=== PATIENT | female | born 1935 | race Caucasian/White ===

== ENCOUNTER 2018-04-01 09:16 | Inpatient (IN) | payer OTHER ==
[2018-04-01 09:30] VITALS: BMI 21.4
[2018-04-01] MEDS ORDERED: ALBUTEROL SO4 2.5/IPRATROPIUM 0.5 INH SOL 3 ML VIAL.NEB. NEB ONE ×3 (09:31→10:44)
[2018-04-01] MEDS ORDERED: VANCOMYCIN 1 GM in D5W (PRE-DOCKED) 1,000 MG/250 ML IVPB ONE (09:44)
[2018-04-01] MEDS ORDERED: PIPERACILLIN/TAZOB 3.375 GM 3.375 GM in DEXTROSE 5%-WATER - 50 ML IVPB ONE (09:45)
[2018-04-01] MEDS ORDERED: SODIUM CHLORIDE 0.9% 1000 ML INFUS.BAG IV ONE ×2 (09:45→10:57)
[2018-04-01 10:15] LABS: BASO % 0.3 % (0-2.0); EOS % 1.3 % (0-4.5); HEMATOCRIT 25.4 % (32.4-45.2); HEMOGLOBIN 7.7 GM/dL (10.7-15.3); MCH 25.6 pg (25.7-33.7); MCHC 30.3 g/dl (32.0-36.0); MEAN CELL VOLUME 84.4 fl (80-96); MEAN PLT VOLUME 7.8 fl (7.5-11.1); MONO % 5.1 % (3.8-10.2); NEUT % 79.3 % (42.8-82.8); PLATELET COUNT 293 K/MM3 (134-434); RBC 3.01 M/mm3 (3.60-5.2); RDW 27.2 % (11.6-15.6); WHITE BLOOD COUNT 8.9 K/mm3 (4.0-10.0)
--- NOTE | 2018-04-01 10:21 | PDOC ---
Attending Attestation - Resident Resident Name: Lan Britt - ED Attending Attestation I have performed the following: I have examined & evaluated the patient, The case was reviewed & discussed with the resident, I agree w/resident's findings & plan, Exceptions are as noted - HPI HPI: 04/01/18 10:14 82 yo F with h/o COPD, in rehab / nursing facility here after arrest. pt called desai, and then found on floor by nursing facility. was found in asystole by ambulance, cpr initiated. aCLS, bicarb and epe x 4. ROSC was in PEA then sinus tachycardia. intubated on scene. received automated CPR. history by EMS as pt intubated on arrival. - Physicial Exam PE: 04/01/18 10:18 pt eyes closed. PERRL, small, head traumatic. lungs with course breath sound bilaterally intubated. sedated. heart rrr no mrg abd soft. ext cool, 2+dp pt . nuero intubated, no spont movement. but does have a gag. eccymosis to epigastrum / red area from cpr. - Medical Decision Making 04/01/18 10:21 82 yo F with h/o card arrest, copd, likely presesumed to be resp secondary to pna, vs. ple effusion, copd. differential includes cardiac arrest AL, hypotension and arrest from sepsis, uti, acidosis, aneia, renal failure. glucose was 300. intracranial bleed considered. will obtain cxr ekg labs septic workup, ct head. . focused ED TTE performed, indication cardiac arrest. four views heart obtained. good contractility, small pericardial effusion noted. RV dilation noted . lungs bilat plueral effusions. right greater than left. air bronchograms at right base sliding seen bilaterally. otherwise a line predominant left, small b lines right. impression: small pericardial effusion with dilated RV , good contractility ( likley chronic, copd), bilat plueral effusion, right base infiltrate. bilat lower extremity dopplers, indication cardiac arrest, r/o pe bilat common femorals scaned plast bifurcation into deep and superficial femoral. full compression bilaterally no visualized clot. popliteals scanned past trifurcation bilaterally. full compression, no visualized clot. impression: no proximal dvt. us guided central line placed right ij. sterile technique used. ( dr puckett, myself). vessel confirmed with compression and color flow. were visualized in IJ prior to dilation vessel. confirmed right sided placement with flush and visualized bubble in RV. no ptx confirmed with lung sliding bilateraly post line. pt with ET tube in place, confirmed on exam, and xray. central line placed for severe shock, cardiac arrest. possible pressors. pt hypotension iimproving with iv fluids. crit care time spent rescusitating patient 60 min. d/w family and ICU performance bedside us. central line placement right IJ. given abx to cover hcap, sepsis. initial lactate 9, likley sepsis and secondary to decreased perfusion during arrest. ekg with TWI, trop pending. d/w icu grupo admit to iCU 04/01/18 10:50
--- NOTE | 2018-04-01 10:36 | PDOC ---
History of Present Illness - General Chief Complaint: Cardiac Arrest Stated Complaint: Cardiac Arrest History Source: Patient Exam Limitations: Clinical Condition - History of Present Illness Initial Comments: 04/01/18 10:26 Patient is an 82F with history of COPD, cervical injury with central cord syndrome here today after cardiac arrest. EMS reports that the patient hit her call button at her nursing facility. Patient was then found in cardiac arrest, compressions were started. EMS reports giving epi x4, bicarb, unknown exact downtime, rosc achieved after ~15 minutes after their arrival. Intubated in the field with good waveform on capnography. Past History - Past Medical History Allergies/Adverse Reactions: Allergies Allergy/AdvReac Type Severity Reaction Status Date / Time ciprofloxacin [From Cipro] Allergy Verified 04/01/18 09:30 Quinolones Allergy Verified 04/01/18 09:31 Sulfa (Sulfonamide Allergy Verified 04/01/18 09:31 Antibiotics) COPD: Yes CHF: Yes Dementia: Yes GI Disorders: Yes (gerd) HTN: Yes Hypercholesterolemia: Yes Psychiatric Problems: Yes (depressive ds, anxiety,) - Suicide/Smoking/Psychosocial Hx Smoking History: Never smoked Have you smoked in the past 12 months: No Information on smoking cessation initiated: No Hx Alcohol Use: No Drug/Substance Use Hx: No Review of Systems - Review of Systems Able to Perform ROS?: No (intubated) *Physical Exam - Vital Signs Last Vital Signs Temp Pulse Resp BP Pulse Ox 97.0 F L 108 H 16 108/72 100 04/01/18 09:16 04/01/18 09:20 04/01/18 09:20 04/01/18 09:16 04/01/18 09:20 - Physical Exam Comments: 04/01/18 10:37 GENERAL: Intubated, no c-collar HEAD: No signs of trauma, normocephalic, atraumatic EYES: PERRLA, EOMI, sclera anicteric, conjunctiva clear ENT: Intubated, moist mucosa NECK: +JVD LUNGS: Equal breath sounds, coarse, wet HEART: Regular rate and rhythm, normal S1 and S2, no murmurs, rubs or gallops, peripheral pulses normal and equal bilaterally. ABDOMEN: Soft, nontender, normoactive bowel sounds. No guarding, no rebound. No masses EXTREMITIES: Normal inspection, Normal range of motion, no edema. No clubbing or cyanosis. NEUROLOGICAL: Pupils 5mm and minimally reactive, gag reflex intact, no movement of extremities. No sedation on board. SKIN: Warm, Dry, normal turgor, no rashes or lesions noted. Moderate Sedation - Procedure Monitoring Vital Signs: Procedure Monitoring Vital Signs Temperature 97.0 F L 04/01/18 09:16 Pulse Rate 108 H 04/01/18 09:20 Respiratory Rate 16 04/01/18 09:20 Blood Pressure 108/72 04/01/18 09:16 O2 Sat by Pulse Oximetry (%) 100 04/01/18 09:20 Procedures - Central Line Central Line Lumen: triple Central Line Position: internal jugular (L) Anesthesia: 1% Lidocaine Amount of anesthesia (ccs): 2 Complications: none Post Central Line Insertion: sutured, good blood return, position confirmed w/ CXR Progress: 04/01/18 12:55 Confirmed via cxr and long/short US views. Dr Dinero primary, Dr Britt assisting, Dr Sky attending. ED Treatment Course - LABORATORY CBC & Chemistry Diagram: 04/01/18 09:46 04/01/18 09:46 - ADDITIONAL ORDERS Additional order review: Laboratory Results 04/01/18 09:19 POC Glucometer 192 04/01/18 04/01/18 09:46 09:19 RBC 3.01 L MCV 84.4 MCHC 30.3 L RDW 27.2 H MPV 7.8 Neutrophils % 79.3 Lymphocytes % 14.0 Monocytes % 5.1 Eosinophils % 1.3 Basophils % 0.3 POC Glucometer 192 - RADIOLOGY Radiology Studies Ordered: Category Date Time Status HEAD CT WITHOUT CONTRAST [CT] Stat CT Scan 04/01/18 10:16 Ordered - Medications Given in the ED: ED Medications Discontinued Medications Generic Name Dose Route Start Last Admin Trade Name Freq PRN Reason Stop Dose Admin Albuterol/Ipratropium 1 amp 04/01/18 09:44 04/01/18 09:50 Duoneb - NEB 04/01/18 09:45 1 amp ONCE ONE Administration Medical Decision Making - Critical Care Time Total Critical Care Time (minutes): 90 Critical Care Statement: The care of this patient involved high complexity decision making to prevent further life threatening deterioration of the patient 's condition and/or to evaluate & treat vital organ system(s) failure or risk of failure. - Medical Decision Making 04/01/18 10:39 Patient is 82F with history of copd and central cord syndrome here today with cardiac arrest. Suspect respiratory failure causing respiratory arrest. A - intubated, good waveform on capnography B - breath sounds equal and bilateral, coarse C - BP map of 60 D - Pupils 5mm minimally reactive, not moving extremities, no facial droop E - Fully exposed, no injuries or signs of infection process noted F - US shows good cardiac squeeze, small pericardial effusion, slightly enlarged RV. Pneumonia on R side, bilateral pleural effusiong G - Glucose 190 fingerstick Central line placed as per procedure note. Started on 2L of NS. Vanc/zosyn started empirically for likely CAP. Duonebs run through tube, oxygenating well. Septic workup initiated. BPs improving with fluids, not requiring pressors at this time. Cooling protocol with goal of 36C started. CXR shows opacification at the right base, appropriate central line/intubation placement. 04/01/18 11:00 Reassessed, last BP MAP 67. *DC/Admit/Observation/Transfer Diagnosis at time of Disposition: Cardiac arrest, Pneumonia - Discharge Dispostion Condition at time of disposition: Critical Decision to Admit order: Yes - Referrals - Patient Instructions - Post Discharge Activity
[2018-04-01 10:43] LABS: VENOUS PC02 61.4 mmHg (38-52)
[2018-04-01 10:45] LABS: VENOUS PH 7.1 (7.32-7.42)
[2018-04-01] MEDS ORDERED: PIPERACILLIN/TAZOB 3.375 GM 3.375 GM/50 ML BAG IVPB ONE (10:45)
[2018-04-01] MEDS ORDERED: VANCOMYCIN 1 GRAM (PRE-DOCKED) 1,000 MG/250 ML BAG IVPB ONE (10:45)
[2018-04-01 11:20] LABS: ALBUMIN 2.7 g/dl (3.4-5.0); ALK PHOS 103 U/L (45-117); ANION GAP 15 MMOL/L (8-16); BILIRUBIN,TOTAL 0.5 mg/dL (0.2-1); BLOOD UREA NITROGEN 26 mg/dL (7-18); CALCIUM 7.4 mg/dL (8.5-10.1); CHLORIDE 109 mmol/L (98-107); CO2 19 mmol/L (21-32); CREATININE 1.9 mg/dL (0.55-1.3); GLUCOSE,RANDOM 282 mg/dL (74-106); POTASSIUM 4.5 mmol/L (3.5-5.1); SGOT/AST 92 U/L (15-37); SGPT/ALT 53 U/L (13-61); SODIUM 142 mmol/L (136-145); TOT PROT 5.4 g/dl (6.4-8.2)
--- NOTE | 2018-04-01 11:48 | CONSULT ---
Consultation: REQUESTING PROVIDER: CONSULT REQUEST: We have been asked to medically evaluate this patient for ICU admission HISTORY OF PRESENT ILLNESS: Patient is not responsive. History provided by son at bedside, and SNF paperwork Patient is an 82 year old female with history of hypertension, COPD, reflex sympathetic dystrophy secondary to C6/C7 fracture s/p fusion, vascular dementia , anxiety, heart failure, presented to ICU after being found on floor, unresponsive in her SNF ([facility]). Uncertain how long patient was on the floor, however, per EMS, ROSC was obtained approx. 15 minutes after chest compressions were initiated. Patient was intubated in field by EMS. Right sided triple lumen internal jugular catheter placed in ED. REVIEW OF SYSTEMS: Unable to obtain. Patient is intubated, nonresponsive. PHYSICAL EXAMINATION Vital Signs - 24 hr 04/01/18 04/01/18 09:16 09:20 Temperature 97.0 F L Pulse Rate 122 H 108 H Respiratory 18 16 Rate Blood Pressure 108/72 O2 Sat by Pulse 100 100 Oximetry (%) GENERAL: Patient is intubated, nonresponsive HEENT: Normocephalic, atraumatic. Pupils equal, round, sluggishly reactive to light, sclera anicteric, conjunctiva clear. Supple without lymphadenopathy. EARS, NOSE, THROAT: Ears normal, nares patent, oropharynx clear without exudates. Moist mucous membranes. LUNGS: Mechanical breath sounds equal, clear to auscultation bilaterally. No wheezes, and no crackles. HEART: Irregular rate and rhythm. normal S1 and S2 without murmur, rub or gallop. ABDOMEN: Soft, not distended. Hypoactive bowel sounds x4 quadrants. UPPER EXTREMITIES: 1+ radial pulses bilaterally. No cyanosis. LOWER EXTREMITIES: 1+ dorsalis pedis pulses bilaterally. No peripheral edema bilateral lower extremities. SKIN: Warm, dry. Laboratory Results - last 24 hr 04/01/18 04/01/18 04/01/18 09:19 09:46 09:46 WBC 8.9 RBC 3.01 L Hgb 7.7 L Hct 25.4 L MCV 84.4 MCH 25.6 L MCHC 30.3 L RDW 27.2 H Plt Count 293 MPV 7.8 Absolute Neuts (auto) 7.0 Neutrophils % 79.3 Lymphocytes % 14.0 Monocytes % 5.1 Eosinophils % 1.3 Basophils % 0.3 Nucleated RBC % 0 VBG pH 7.10 L* POC VBG pCO2 61.4 H* POC VBG pO2 50.0 H Mixed VBG HCO3 18.2 L Sodium Potassium Chloride Carbon Dioxide Anion Gap BUN Creatinine Creat Clearance w eGFR POC Glucometer 192 Random Glucose Lactic Acid Calcium Total Bilirubin AST ALT Alkaline Phosphatase Creatine Kinase Troponin I Total Protein Albumin 04/01/18 04/01/18 04/01/18 09:46 09:46 09:46 WBC RBC Hgb Hct MCV MCH MCHC RDW Plt Count MPV Absolute Neuts (auto) Neutrophils % Lymphocytes % Monocytes % Eosinophils % Basophils % Nucleated RBC % VBG pH POC VBG pCO2 POC VBG pO2 Mixed VBG HCO3 Sodium 142 Potassium 4.5 Chloride 109 H Carbon Dioxide 19 L Anion Gap 15 BUN 26 H Creatinine 1.9 H Creat Clearance w eGFR 25.44 POC Glucometer Random Glucose 282 H Lactic Acid 9.3 H* Calcium 7.4 L Total Bilirubin 0.5 AST 92 H ALT 53 Alkaline Phosphatase 103 Creatine Kinase 59 Troponin I 0.02 Total Protein 5.4 L Albumin 2.7 L ASSESSMENT/PLAN: Patient is an 82 year old female with history of hypertension, COPD, 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 Neurological -Patient is non-responsive. Glascow Coma Scale = 3 -CT head shows atrophy, with ventricular dilation. Preserved cardenas-white matter junction. -Consider initiating Propofol drip for sedation, shivering during TTM -Initiating targeted temperature management. Maintain 32C for the next 24 hours -Monitor for any changes in mental status Pulmonary COPD -Intubated. Ventilator settings: RR14, tidal volume 350, PEEP 5, FiO2 100%. -Chest x-ray shows questionable right sided lower lobe infiltrate, concerning for pneumonia. Elevated right hemidiaphragm. -Patient received Vancomycin 1000mg IV, Zosyn 3.375grams IV -Maintain oxygen saturation greater than 90% Cardiovascular Asystole, cardiac arrest Bradycardia Hypertension -Patient reported in Asystole at time of EMS arrival (uncertain for how long patient was in asystole). Per EMS, ROSC obtained approx 15 minutes after EMS arrival. -EKG upon admission shows Afib with RVR at 109 BPM -Troponin 0.02. Follow troponins -Reported history of heart failure. Follow cardiac ECHO -Lactic acid 9.2 likely secondary to coronary ischemia. Will trend -Begin cardiac pacing for bradycardia. Fentanyl drip initiated for pain. Gastrointestinal -NPO while patient is intubated -IV normal saline at 75mL/ hour. Chest radiograph not impressive for fluid overload. No crackles, wheezing auscultated on exam. -Monitor closely for signs of fluid overload Renal Acute kidney injury -BUN 26/ Cr 1.9 Uncertain baseline. No reported history of CKD. -ELIU likely secondary to hypoperfusion during asystole. -Patient is receiving IV fluids -Follow BUN/ Cr -Follow urine output Psychiatric Anxiety -Holding home anxiety medications. Consider reinstating once patient is awake. FEN -Fluids: IV normal saline at 75mL/ hour -Electrolytes: Within normal limits. Follow CMP, replete as necessary. -Nutrition: NPO while intubated. Prophylaxis -Heparin 5000units subq TID Tubes, Lines, Drains -Patient intubated in the field by EMS 04/01 -Right central venous catheter placed in ED 04/01 -Petty catheter placed 04/01 Disposition: We will continue to follow the patient. Thank you for this consultative opportunity. Goals of care: Per [facility] paperwork from , patient's son Berhane Dhillon ([phone]) is health care proxy. Discussion initiated regarding goals of care, he is waiting for family to arrive to have discussion. Visit type - Emergency Visit Emergency Visit: Yes ED Registration Date: 04/01/18 Care time: The patient presented to the Emergency Department on the above date and was hospitalized for further evaluation of their emergent condition. - New Patient This patient is new to me today: Yes Date on this admission: 04/01/18 - Critical Care Critical Care patient: Yes Total Critical Care Time (in minutes): 45 Critical Care Statement: The care of this patient involved high complexity decision making to prevent further life threatening deterioration of the patient 's condition and/or to evaluate & treat vital organ system(s) failure or risk of failure.
[2018-04-01 13:27] LABS: ANISOCYTOSIS 1+; MACROCYTOSIS 1+; OVALOCYTE 1+; PLATELET ESTIMATE NORMAL
[2018-04-01] MEDS ORDERED: PROPOFOL 1,000,000 MCG/100 ML VIAL ONE (13:39)
[2018-04-01] MEDS ORDERED: PROPOFOL 1,000,000 MCG/100 ML VIAL IVPB SCH (13:45)
--- NOTE | 2018-04-01 13:50 | PN ---
Teaching Attending Note Name of Resident: Pillo Dimas ATTENDING PHYSICIAN STATEMENT I saw and evaluated the patient. I reviewed the resident's note and discussed the case with the resident. I agree with the resident's findings and plan as documented. SUBJECTIVE: Patient seen and examined in the ICU. Events noted. Cardiac arrest with ROSC in about 15 minutes. Now seen in the ICU intubated and obtunded, no response to noxious stimuli. AC Mode of vent, 100% FiO2. Hemodynamics borderline. R IJ was inserted in the ED for access. Intake & Output 03/29/18 03/30/18 03/31/18 04/01/18 23:59 23:59 23:59 23:59 Weight 110 lb Last Vital Signs Temp Pulse Resp BP Pulse Ox 97.9 F 78 14 83/63 L 100 04/01/18 10:45 04/01/18 13:23 04/01/18 13:22 04/01/18 10:45 04/01/18 13:23 Active Medications Propofol (Diprivan -) 40,000 mcg IVPUSH ONCE ONE Stop: 04/01/18 13:50 GENERAL: Patient is intubated, unresponsive HEENT: pupils minimally responsive EARS, NOSE, THROAT: intubated, dry mucous membranes. LUNGS: Mechanical ventilation, clear to auscultation bilaterally. No wheezes, and no crackles. HEART: Irregular rate and rhythm. normal S1 and S2 without murmur, rub or gallop. ABDOMEN: Soft, not distended. Hypoactive bowel sounds x4 quadrants. UPPER EXTREMITIES: 1+ radial pulses bilaterally. No cyanosis. LOWER EXTREMITIES: 1+ dorsalis pedis pulses bilaterally. No peripheral edema bilateral lower extremities. SKIN: Warm, dry. ASSURANCE SENIOR: unresponsive Laboratory Results - last 24 hr 04/01/18 04/01/18 04/01/18 09:19 09:46 09:46 WBC 8.9 RBC 3.01 L Hgb 7.7 L Hct 25.4 L MCV 84.4 MCH 25.6 L MCHC 30.3 L RDW 27.2 H Plt Count 293 MPV 7.8 Absolute Neuts (auto) 7.0 Neutrophils % 79.3 Lymphocytes % 14.0 Monocytes % 5.1 Eosinophils % 1.3 Basophils % 0.3 Nucleated RBC % 0 VBG pH 7.10 L* POC VBG pCO2 61.4 H* POC VBG pO2 50.0 H Mixed VBG HCO3 18.2 L Sodium Potassium Chloride Carbon Dioxide Anion Gap BUN Creatinine Creat Clearance w eGFR POC Glucometer 192 Random Glucose Lactic Acid Calcium Total Bilirubin AST ALT Alkaline Phosphatase Creatine Kinase Troponin I Total Protein Albumin 04/01/18 04/01/18 04/01/18 09:46 09:46 09:46 WBC RBC Hgb Hct MCV MCH MCHC RDW Plt Count MPV Absolute Neuts (auto) Neutrophils % Lymphocytes % Monocytes % Eosinophils % Basophils % Nucleated RBC % VBG pH POC VBG pCO2 POC VBG pO2 Mixed VBG HCO3 Sodium 142 Potassium 4.5 Chloride 109 H Carbon Dioxide 19 L Anion Gap 15 BUN 26 H Creatinine 1.9 H Creat Clearance w eGFR 25.44 POC Glucometer Random Glucose 282 H Lactic Acid 9.3 H* Calcium 7.4 L Total Bilirubin 0.5 AST 92 H ALT 53 Alkaline Phosphatase 103 Creatine Kinase 59 Troponin I 0.02 Total Protein 5.4 L Albumin 2.7 L ASSESSMENT/PLAN: Asystolic Cardiac arrest with probable ESTELA Acute Respiratory Failure R/O PNA Hypertension COPD History of reflex sympathetic dystrophy History of C6/C7 fracture S/P fusion ELIU AFib TTM to be instituted maintain temperature < 36 for 24 hours Keep off sedation for now to assess mental status, can use propofol/versed if needed Strict I & O Pressors (NE) for MAP < 65 Broad spectrum ABX coverage Follow CXR Follow ABG IVF Follow lactic acid trend Overall prognosis for meaningful recovery appears grave Requires ICU monitoring Dr Miller Critical care time spent in reviewing chart, evaluating patient and formulating plan - 36 minutes.
[2018-04-01] MEDS ORDERED: PROPOFOL 200 MG/20 ML VIAL IVPUSH ONE (14:00)
--- NOTE | 2018-04-01 16:00 | ECHO ---
Name: MAGDIEL MOTT Exam:Adult Echocardiogram Study Date: 04/01/2018 03:03 PM Age: 82 yrs Reason For Study: s/p cardiac arrest Height: 60 in Weight: 110 lb BSA: 1.4 m2 BP: 107/92 mmHg MMode/2D Measurements & Calculations IVSd: 1.0 cm Ao root diam: 2.5 cm LVIDd: 3.8 cm LA dimension: 4.2 cm LVIDs: 2.3 cm LVPWd: 1.0 cm EDV(Teich): 61.8 ml LVOT diam: 2.0 cm ESV(Teandrea): 18.1 ml TAPSE: 1.9 cm RV S Gustavo: 6.2 cm/sec Doppler Measurements & Calculations MV E max gustavo: 65.5 cm/sec MR max gustavo: 476.3 cm/sec MR max P.7 mmHg TR max gustavo: 340.7 cm/sec PI end-d gustavo: 160.2 cm/sec TR max P.5 mmHg Med Peak E' Gustavo: 7.3 cm/sec Med E/e': 9.0 Lat Peak E' Gustavo: 9.1 cm/sec Lat E/e': 7.2 Procedure A complete two-dimensional transthoracic echocardiogram was performed (2D, M-mode, Doppler and color flow Doppler). Left Ventricle The left ventricle is normal in size. Left ventricular systolic function is normal. Ejection Fraction = 60- 65%. No regional wall motion abnormalities noted. Right Ventricle The right ventricle is normal size. RV systolic TDI is 6 cm/s suggestive of RV systolic dysfunction. Atria The left atrium is mildly dilated. The right atrium is mildly dilated. Mitral Valve The mitral valve is normal in structure and function. There is moderate mitral regurgitation. Tricuspid Valve The tricuspid valve is normal in structure and function. There is moderate to severe tricuspid regurg itation. Pulmonary artery systolic pressure is at least 66 mmHg assuming RA pressure of 15 mmHg (dilated IVC w ith <50% collapse). Aortic Valve There is mild aortic sclerosis.;. No aortic regurgitation is present. Pulmonic Valve The pulmonic valve is not well visualized. Mild pulmonic valvular regurgitation. Great Vessels The aortic root is normal size. Pericardium/Pleura Small pericardial effusion (<1cm). There is a pleural effusion present. Interpretation Summary The left ventricle is normal in size. Left ventricular systolic function is normal. No regional wall motion abnormalities noted. Ejection Fraction = 60-65%. RV systolic TDI is 6 cm/s suggestive of RV systolic dysfunction The left atrium is mildly dilated. The right atrium is mildly dilated. There is moderate mitral regurgitation. There is moderate to severe tricuspid regurgitation. Pulmonary artery systolic pressure is at least 66 mmHg assuming RA pressure of 15 mmHg (dilated IVC w ith <50% collapse) There is mild aortic sclerosis. Mild pulmonic valvular regurgitation. Small pericardial effusion (<1cm) There is a pleural effusion present. Previous study is not available for comparison Nick Conner MD 04/01/2018 03:59 PM
[2018-04-01] MEDS ORDERED: SODIUM CHLORIDE 1,000 ML IV SCH (16:15)
[2018-04-01] MEDS: SODIUM CHLORIDE 1,000 ML IV SCH (17:00)
[2018-04-01] MEDS ORDERED: ATROPINE SULFATE 1 MG/10 ML DISP.SYRIN ONE (17:13)
--- NOTE | 2018-04-01 17:28 | HP ---
Admitting History and Physical - Primary Care Physician PCP: Devaughn Castillo - Admission History of Present Illness: 82F with history of COPD, cervical injury with central cord syndrome here today after cardiac arrest. EMS reports that the patient hit her call button at her nursing facility. Patient was then found in cardiac arrest, compressions were started. EMS reports giving epi x4, bicarb, unknown exact downtime, rosc achieved after ~15 minutes after their arrival. Intubated in the field with good waveform on capnography. - Past Medical History Pulmonary: Yes: COPD - Smoking History Smoking history: Never smoked Have you smoked in the past 12 months: No - Alcohol/Substance Use Hx Alcohol Use: No Home Medications - Allergies Allergies/Adverse Reactions: Allergies Allergy/AdvReac Type Severity Reaction Status Date / Time ciprofloxacin [From Cipro] Allergy Verified 04/01/18 09:30 Quinolones Allergy Verified 04/01/18 09:31 Sulfa (Sulfonamide Allergy Verified 04/01/18 09:31 Antibiotics) - Home Medications Home Medications: Ambulatory Orders Albuterol Sulfate [Proair Hfa] 8.5 gm IH PRN #1 hfa.aer.ad 04/01/18 Amlodipine Besylate [Norvasc -] 10 mg PO DAILY #30 tablet 04/01/18 Atorvastatin Ca [Lipitor] 20 mg PO HS #30 tablet 04/01/18 Docusate Sodium 200 mg PO DAILY 30 Days capsule 04/01/18 Ergocalciferol (Vitamin D2) [Vitamin D2] 50,000 unit PO WEEKLY 30 Days capsule 04/01/18 Fluoxetine HCl [Prozac] 40 mg PO DAILY #30 cap 04/01/18 Metoprolol Tartrate 25 mg PO BID 30 Days tablet 04/01/18 Oxycodone HCl/Acetaminophen [Percocet 10-325 mg Tablet] 1 each PO QID 7 Days tablet MDD 40-1300mg 04/01/18 Quetiapine Fumarate [Seroquel -] 25 mg PO BID #60 tab 04/01/18 traZODone HCL [Trazodone HCl] 100 mg PO DAILY #30 tablet 04/01/18 Physical Examination Vital Signs: Vital Signs Temperature 97.9 F 04/01/18 10:45 Pulse Rate 78 04/01/18 13:23 Respiratory Rate 14 04/01/18 16:02 Blood Pressure 83/63 L 04/01/18 10:45 O2 Sat by Pulse Oximetry (%) 100 04/01/18 16:02 Constitutional: Yes: Calm HENT: Yes: Atraumatic Neck: Yes: Supple Cardiovascular: Yes: Regular Rate and Rhythm Respiratory: Yes: Rhonchi Gastrointestinal: Yes: Normal Bowel Sounds Extremities: Yes: WNL Edema: No Peripheral Pulses WNL: Yes Neurological: Yes: Other (intubated) Labs: CBC, BMP 04/01/18 09:46 04/01/18 09:46 Problem List - Problems (1) Cardiac arrest Assessment/Plan: intubated cardio on board Code(s): I46.9 - CARDIAC ARREST, CAUSE UNSPECIFIED (2) Pneumonia Assessment/Plan: iv abx id consult Code(s): J18.9 - PNEUMONIA, UNSPECIFIED ORGANISM Assessment/Plan Laboratory Tests 04/01/18 04/01/18 04/01/18 09:19 09:46 09:46 WBC 8.9 RBC 3.01 L Hgb 7.7 L Hct 25.4 L MCV 84.4 MCH 25.6 L MCHC 30.3 L RDW 27.2 H Plt Count 293 MPV 7.8 Absolute Neuts (auto) 7.0 Neutrophils % 79.3 Lymphocytes % 14.0 Monocytes % 5.1 Eosinophils % 1.3 Basophils % 0.3 Nucleated RBC % 0 Hypochromia 2+ Platelet Estimate Normal Polychromasia 1+ Poikilocytosis 3+ Anisocytosis 1+ Microcytosis 1+ Macrocytosis 1+ Ovalocytes 1+ Acanthocytes (Spur) 1+ Schistocytes 1+ VBG pH 7.10 L* POC VBG pCO2 61.4 H* POC VBG pO2 50.0 H Mixed VBG HCO3 18.2 L Sodium Potassium Chloride Carbon Dioxide Anion Gap BUN Creatinine Creat Clearance w eGFR POC Glucometer 192 Random Glucose Lactic Acid Calcium Total Bilirubin AST ALT Alkaline Phosphatase Creatine Kinase Troponin I Total Protein Albumin 04/01/18 04/01/18 04/01/18 09:46 09:46 09:46 WBC RBC Hgb Hct MCV MCH MCHC RDW Plt Count MPV Absolute Neuts (auto) Neutrophils % Lymphocytes % Monocytes % Eosinophils % Basophils % Nucleated RBC % Hypochromia Platelet Estimate Polychromasia Poikilocytosis Anisocytosis Microcytosis Macrocytosis Ovalocytes Acanthocytes (Spur) Schistocytes VBG pH POC VBG pCO2 POC VBG pO2 Mixed VBG HCO3 Sodium 142 Potassium 4.5 Chloride 109 H Carbon Dioxide 19 L Anion Gap 15 BUN 26 H Creatinine 1.9 H Creat Clearance w eGFR 25.44 POC Glucometer Random Glucose 282 H Lactic Acid 9.3 H* Calcium 7.4 L Total Bilirubin 0.5 AST 92 H ALT 53 Alkaline Phosphatase 103 Creatine Kinase 59 Troponin I 0.02 Total Protein 5.4 L Albumin 2.7 L 04/01/18 14:30 WBC RBC Hgb Hct MCV MCH MCHC RDW Plt Count MPV Absolute Neuts (auto) Neutrophils % Lymphocytes % Monocytes % Eosinophils % Basophils % Nucleated RBC % Hypochromia Platelet Estimate Polychromasia Poikilocytosis Anisocytosis Microcytosis Macrocytosis Ovalocytes Acanthocytes (Spur) Schistocytes VBG pH POC VBG pCO2 POC VBG pO2 Mixed VBG HCO3 Sodium Potassium Chloride Carbon Dioxide Anion Gap BUN Creatinine Creat Clearance w eGFR POC Glucometer Random Glucose Lactic Acid Calcium Total Bilirubin AST ALT Alkaline Phosphatase Creatine Kinase Troponin I 0.17 H Total Protein Albumin Active Medications Generic Name Dose Route Start Last Admin Trade Name Freq PRN Reason Stop Dose Admin Heparin Sodium (Porcine) 5,000 unit 04/01/18 22:00 Heparin - SQ TID [facility] Sodium Chloride 1,000 mls @ 75 mls/hr 04/01/18 16:15 04/01/18 16:12 Normal Saline - IV 75 mls/hr ASDIR [facility] Administration ASSESSMENT/PLAN: Asystolic Cardiac arrest with probable ESTELA Acute Respiratory Failure R/O PNA Hypertension COPD History of reflex sympathetic dystrophy History of C6/C7 fracture S/P fusion ELIU AFib icu 55 min PT IS DNR
[2018-04-01] MEDS ORDERED: fentaNYL CITRATE 250 MCG/5 ML VIAL ONE (17:55)
[2018-04-01 19:06] LABS: ARTERIAL BLD GAS O2 SATURATION 98.5 % (90-98.9); ARTERIAL BLOOD GAS BASE EXCESS -3.5 meq/l (-2-2); ARTERIAL BLOOD GAS PCO2 44.5 mmHg (35-45); ARTERIAL BLOOD GAS pH 7.31 (7.35-7.45)
[2018-04-01 19:07] LABS: ALLENS TEST POSITIVE
--- NOTE | 2018-04-01 21:25 | EKG ---
Test Reason : Blood Pressure : / mmHG Vent. Rate : 109 BPM Atrial Rate : 109 BPM P-R Int : 000 ms QRS Dur : 148 ms QT Int : 368 ms P-R-T Axes : 000 079 037 degrees QTc Int : 495 ms ATRIAL FIBRILLATION WITH RAPID VENTRICULAR RESPONSE RIGHT BUNDLE BRANCH BLOCK T WAVE ABNORMALITY, CONSIDER LATERAL ISCHEMIA ABNORMAL ECG NO PREVIOUS ECGS AVAILABLE Confirmed by JOANNA MICHAEL MD ([id number]) on 04/01/2018 9:25:19 PM Referred By: Confirmed By:JOANNA MICHAEL MD
[2018-04-01] MEDS: FENTANYL INJECTION 500 MCG in DEXTROSE 5%-WATER - 90 ML IVPB SCH (22:27)
[2018-04-01] MEDS: HEPARIN NA (PORCINE) 5,000 UNITS/ML 1ML VIAL SQ SCH (22:27)
--- NOTE | 2018-04-01 23:26 | CON.NEURO ---
Consult Consult Specialty:: NEUROLOGY-[facility] Reason for Consultation:: Anoxic brain injury - History of Present Illness History of Present Illness: 82F with history of COPD, cervical injury with central cord syndrome here today after cardiac arrest. EMS reports that the patient hit her call button at her nursing facility. Patient was then found in cardiac arrest, compressions were started. EMS reports giving epi x4, bicarb, unknown exact downtime, rosc achieved after ~15 minutes after their arrival. Intubated in the field with good waveform on capnography. Patient as per nursing has been triggering vent. Unable to relate hx. - Past Medical History Pulmonary: Yes: COPD - Alcohol/Substance Use Hx Alcohol Use: No - Smoking History Smoking history: Never smoked Have you smoked in the past 12 months: No Home Medications - Allergies Allergies/Adverse Reactions: Allergies Allergy/AdvReac Type Severity Reaction Status Date / Time ciprofloxacin [From Cipro] Allergy Verified 04/01/18 09:30 Quinolones Allergy Verified 04/01/18 09:31 Sulfa (Sulfonamide Allergy Verified 04/01/18 09:31 Antibiotics) - Home Medications Home Medications: Ambulatory Orders Albuterol Sulfate [Proair Hfa] 8.5 gm IH PRN #1 hfa.aer.ad 04/01/18 Amlodipine Besylate [Norvasc -] 10 mg PO DAILY #30 tablet 04/01/18 Atorvastatin Ca [Lipitor] 20 mg PO HS #30 tablet 04/01/18 Docusate Sodium 200 mg PO DAILY 30 Days capsule 04/01/18 Ergocalciferol (Vitamin D2) [Vitamin D2] 50,000 unit PO WEEKLY 30 Days capsule 04/01/18 Fluoxetine HCl [Prozac] 40 mg PO DAILY #30 cap 04/01/18 Metoprolol Tartrate 25 mg PO BID 30 Days tablet 04/01/18 Oxycodone HCl/Acetaminophen [Percocet 10-325 mg Tablet] 1 each PO QID 7 Days tablet MDD 40-1300mg 04/01/18 Quetiapine Fumarate [Seroquel -] 25 mg PO BID #60 tab 04/01/18 traZODone HCL [Trazodone HCl] 100 mg PO DAILY #30 tablet 04/01/18 Physical Exam-Neuro Vital Signs: Vital Signs Temperature 93.3 F L 04/01/18 23:00 Pulse Rate 78 04/01/18 23:00 Respiratory Rate 19 04/01/19 23:00 Blood Pressure 116/62 04/01/18 23:00 O2 Sat by Pulse Oximetry (%) 100 04/01/18 20:28 Labs: CBC, BMP 04/01/18 09:46 04/01/18 09:46 - Neuro Exam Level Of Consciousness: Yes: Obtunded Eyes: Yes: KALLI Dominant Hand: Right Mini Mental Exam: winces to painful stimulii Cranial Nerves II-XII Intact: Yes (+ Doll's eye movements, + nasal tickle reflex , + corneal reflexes) DTR's: 0 Left Achilles (bilat knee jerks-trace present only), 0 Right Achilles Response to light touch: Abnormal (responds to pain only on ext. by wincing) Motor Strength: 0/5: Left Arm, Right Arm, Left Leg, Right Leg Imaging - Results Cat Scan: Image Reviewed (Reported without gross intracranial pathology) Assessment/Plan s/p card. arrest, has had anoxia to brain, being rx. with hypothermia. Her brain stem reflexes are present, she is triggering vent. Would cont current management, no evid of seizures. Thank you, Lillian Castro MD
[2018-04-02] MEDS ORDERED: fentaNYL CITRATE 250 MCG/5 ML VIAL ONE ×3 (00:23→21:55)
[2018-04-02 01:50] LABS: URINE APPEARANCE CLOUDY; URINE BILIRUBIN NEGATIVE (<2.0 mg/dL); URINE COLOR YELLOW; URINE GLUCOSE (UA) NEGATIVE (NEGATIVE); URINE KETONE NEGATIVE (NEGATIVE); URINE LEUK ESTERASE 1+ (NEGATIVE); URINE NITRITE NEGATIVE (NEGATIVE); URINE PROTEIN 2+ (NEGATIVE); URINE UROBILINOGEN NEGATIVE mg/dL (0.2-1.0)
[2018-04-02 02:10] LABS: HEMATOCRIT 24.6 % (32.4-45.2); HEMOGLOBIN 7.8 GM/dL (10.7-15.3); MCH 24.9 pg (25.7-33.7); MCHC 31.8 g/dl (32.0-36.0); MEAN CELL VOLUME 78.1 fl (80-96); MEAN PLT VOLUME 7.4 fl (7.5-11.1); PLATELET COUNT 294 K/MM3 (134-434); RBC 3.15 M/mm3 (3.60-5.2); RDW 26.1 % (11.6-15.6); WHITE BLOOD COUNT 13.8 K/mm3 (4.0-10.0)
[2018-04-02 02:26] LABS: EPI CELLS FEW /HPF (FEW); URINE BACTERIA RARE /hpf (NONE SEEN); URINE MUCUS RARE
[2018-04-02 02:29] LABS: ALBUMIN 2.8 g/dl (3.4-5.0); ALK PHOS 147 U/L (45-117); ANION GAP 7 MMOL/L (8-16); BILIRUBIN,TOTAL 0.7 mg/dL (0.2-1); BLOOD UREA NITROGEN 31 mg/dL (7-18); CHLORIDE 111 mmol/L (98-107); CO2 24 mmol/L (21-32); CREATININE 1.6 mg/dL (0.55-1.3); GLUCOSE,RANDOM 160 mg/dL (74-106); POTASSIUM 4.2 mmol/L (3.5-5.1); SGOT/AST 138 U/L (15-37); SGPT/ALT 113 U/L (13-61); SODIUM 141 mmol/L (136-145); TOT PROT 5.4 g/dl (6.4-8.2)
[2018-04-02] MEDS: HEPARIN NA (PORCINE) 5,000 UNITS/ML 1ML VIAL SQ SCH ×3 (06:23→21:07)
[2018-04-02 06:30] LABS: HEMATOCRIT 25.5 % (32.4-45.2); HEMOGLOBIN 8.1 GM/dL (10.7-15.3); MCHC 31.7 g/dl (32.0-36.0); MEAN CELL VOLUME 78.7 fl (80-96); MEAN PLT VOLUME 7.8 fl (7.5-11.1); PLATELET COUNT 257 K/MM3 (134-434); RBC 3.24 M/mm3 (3.60-5.2); RDW 26.2 % (11.6-15.6); WHITE BLOOD COUNT 15.9 K/mm3 (4.0-10.0)
--- NOTE | 2018-04-02 06:47 | PN ---
Progress Note (short form) - Note Progress Note: Chief Complaint: Events noted, notes reviewed, unresponsive, post cardio- pulmonary arrest, external pacing noted with underlying sinus rhythm/bradycardia - tachycardia and PAF (suggestive of sinus node dysfunction) History of Present Illness: Seen and examined in the ICU. Full consult dictated Echocardiography dated 04/01/18 revealed normal LV size and function, LVEF 60-65% , RV systolic dysfunction, bi-atrial dilatation, moderae to severe TR with RVSP of 66 mmHg, small pericardial effusion - Current Medication List Current Medications: Current Medications Heparin Sodium (Porcine) (Heparin -) 5,000 unit SQ TID [facility] Last Admin: 04/02/18 06:23 Dose: 5,000 unit Sodium Chloride (Normal Saline -) 1,000 mls @ 75 mls/hr IV ASDIR [facility] Last Admin: 04/01/18 17:00 Dose: 75 mls/hr Fentanyl 500 mcg/ Dextrose 100 mls @ 5 mls/hr IVPB TITR [facility]; Protocol Last Admin: 04/01/18 22:27 Dose: 25 mcg/hr, 5 mls/hr - Objective Vital Signs: Last Vital Signs Temp Pulse Resp BP Pulse Ox 95 F L 64 20 106/61 100 04/02/18 06:00 04/02/18 06:00 04/02/18 06:43 04/02/18 06:00 04/01/18 20:28 Intake & Output 03/30/18 03/31/18 04/01/18 04/02/18 23:59 23:59 23:59 23:59 Intake Total 340 1020 Balance 340 1020 Weight 110 lb 154 lb Constitutional: Unresponsive Neck: Supple Negative JVD Cardiovascular: S1 S2 Regular Rate and Rhythm Distant no Murmurs noted Respiratory: Scattered Rhonchi Gastrointestinal: Soft Benign Normal Bowel Sounds Ext: No Edema Labs: CBC, BMP 04/02/18 05:30 04/02/18 05:30 ABG Results ABG pH 7.31 (7.35-7.45) L 04/01/18 18:40 ABG pCO2 at Pt Temp 44.5 mmHg (35-45) 04/01/18 18:40 ABG pO2 at Pt Temp 137.0 mmHg (68-100) H 04/01/18 18:40 ABG HCO3 21.9 meq/L (22-26) L 04/01/18 18:40 ABG O2 Sat (Measured) 98.5 % (90-98.9) 04/01/18 18:40 ABG O2 Content 10.3 % vol (15-22) L 04/01/18 18:40 ABG Base Excess -3.5 meq/l (-2-2) L 04/01/18 18:40 Troponin, BNP 04/01/18 04/01/18 04/01/18 09:46 14:30 20:10 Troponin I 0.02 0.17 H 0.21 H Hepatic Panel Total Bilirubin 0.7 mg/dL (0.2-1) 04/02/18 01:30 AST 138 U/L (15-37) H 04/02/18 01:30 ALT 113 U/L (13-61) H 04/02/18 01:30 Alkaline Phosphatase 147 U/L (45-117) H 04/02/18 01:30 Albumin 2.8 g/dl (3.4-5.0) L 04/02/18 01:30 Assessment/Plan ASSESSMENT: 1. Post cardio-pulmonary arrest with probable anoxic encephalopathy 2. 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 Diastolic LV dysfunction with clinical class 0 NYHA classification LV failure 4. RV dysfunction with pulmonary HTN, most likely related to #3/diastolic LV dysfunction and #9/COPD 5. Sinus bradycardia- tachycardia and PAF/[id number] score of 5 (suggestive of sinus node dysfunction) 6. HTN 7. History of reflex sympathetic dystrophy secondary to C6/C7 fracture post fusion 8. History of organic brain syndrome/vascular dementia 9. COPD 10. CKD, with probable acute exacerbation 11. Abnormal LFT's, shock liver 12. History of anxiety disorder PLAN: 1. Ideally recommend A/C unless it absolutely contraindicated considering the above noted PAF/[id number] score of 5 2. External pacing as needed pending assessment of neurologic status, and if the above noted arrhythmia is persistent may require PPM 3. Ideally should be on B-Blockers but to be deferred in view of the above noted ted-arrhythmia 4. Trend Troponin I 5. Overall poor prognosis, patient currently is DNR pending further assessment of neurologic status/recovery Ritika Freeman MD
[2018-04-02 07:14] LABS: ALBUMIN 2.8 g/dl (3.4-5.0); ALK PHOS 141 U/L (45-117); ANION GAP 7 MMOL/L (8-16); BILIRUBIN,TOTAL 0.6 mg/dL (0.2-1); BLOOD UREA NITROGEN 30 mg/dL (7-18); CHLORIDE 112 mmol/L (98-107); CO2 23 mmol/L (21-32); CREATININE 1.6 mg/dL (0.55-1.3); GLUCOSE,RANDOM 133 mg/dL (74-106); MAGNESIUM 2.4 mg/dL (1.8-2.4); PHOSPHOROUS 4.4 mg/dL (2.5-4.9); POTASSIUM 4.6 mmol/L (3.5-5.1); SGOT/AST 109 U/L (15-37); SGPT/ALT 105 U/L (13-61); SODIUM 142 mmol/L (136-145); TOT PROT 5.6 g/dl (6.4-8.2)
--- NOTE | 2018-04-02 07:31 | PN ---
Physical Exam: SUBJECTIVE: Patient seen and examined Patient was seen and examined by me. Patient remains intubated and the rewarming process was started in AM. Spoke with patient's family regarding GOC. The health proxy may initiate compassionate extubation tomorrow if she remains showing signs of anoxic injury. Patient's eyes fixated to right upper corner and lays in a decerebrate posture. OBJECTIVE: Vital Signs Period Temp Pulse Resp BP Sys/Garcia Pulse Ox Last 24 Hr 92.3 F-97.9 F 41-122 13-26 83-130/49-97 100-100 GENERAL: The patient is awake, alert, and unable to assess orientation, in no acute distress. HEAD: Normal with no signs of trauma. EYES: minimally reactive pupils bilaterally. unable to assess EOM. eyes fixated to right upper corner without purposeful movement ENT: Ears normal, nares patent, oropharynx clear without exudates, moist mucous membranes. NECK: Trachea midline, intubated, supple. LUNGS: Breath sounds equal, clear to auscultation bilaterally, no wheezes, no crackles, no accessory muscle use. HEART: Regular rate and rhythm, S1, S2 without murmur, rub or gallop. ABDOMEN: Soft, nontender, nondistended, normoactive bowel sounds, no guarding, no rebound, no hepatosplenomegaly, no masses. EXTREMITIES: 2+ pulses, warm, well-perfused, no edema. NEUROLOGICAL: Cranial nerves II through XII grossly intact. Normal speech, gait not observed. PSYCH: Normal mood, normal affect. SKIN: Warm, dry, normal turgor, no rashes or lesions noted Laboratory Results - last 24 hr 04/01/18 04/01/18 04/01/18 09:19 09:46 09:46 WBC 8.9 RBC 3.01 L Hgb 7.7 L Hct 25.4 L MCV 84.4 MCH 25.6 L MCHC 30.3 L RDW 27.2 H Plt Count 293 MPV 7.8 Absolute Neuts (auto) 7.0 Neutrophils % 79.3 Lymphocytes % 14.0 Monocytes % 5.1 Eosinophils % 1.3 Basophils % 0.3 Nucleated RBC % 0 Hypochromia 2+ Platelet Estimate Normal Polychromasia 1+ Poikilocytosis 3+ Anisocytosis 1+ Microcytosis 1+ Macrocytosis 1+ Ovalocytes 1+ Acanthocytes (Spur) 1+ Schistocytes 1+ Anticoagulation Therapy Puncture Site ABG pH ABG pCO2 at Pt Temp ABG pO2 at Pt Temp ABG HCO3 ABG O2 Sat (Measured) ABG O2 Content ABG Base Excess Paresh Test VBG pH 7.10 L* POC VBG pCO2 61.4 H* POC VBG pO2 50.0 H Mixed VBG HCO3 18.2 L O2 Delivery Device Oxygen Flow Rate Vent Mode Vent Rate Mechanical Rate PEEP Pressure Support Vent Sodium Potassium Chloride Carbon Dioxide Anion Gap BUN Creatinine Creat Clearance w eGFR POC Glucometer 192 Random Glucose Lactic Acid Calcium Phosphorus Magnesium Total Bilirubin AST ALT Alkaline Phosphatase Creatine Kinase Creatine Kinase Index CK-MB (CK-2) Troponin I Total Protein Albumin Urine Color Urine Appearance Urine pH Ur Specific [place] Urine Protein Urine Glucose (UA) Urine Ketones Urine Blood Urine Nitrite Urine Bilirubin Urine Urobilinogen Ur Leukocyte Esterase Urine WBC (Auto) Urine RBC (Auto) Ur Epithelial Cells Urine Bacteria Urine Mucus 04/01/18 04/01/18 04/01/18 09:46 09:46 09:46 WBC RBC Hgb Hct MCV MCH MCHC RDW Plt Count MPV Absolute Neuts (auto) Neutrophils % Lymphocytes % Monocytes % Eosinophils % Basophils % Nucleated RBC % Hypochromia Platelet Estimate Polychromasia Poikilocytosis Anisocytosis Microcytosis Macrocytosis Ovalocytes Acanthocytes (Spur) Schistocytes Anticoagulation Therapy Puncture Site ABG pH ABG pCO2 at Pt Temp ABG pO2 at Pt Temp ABG HCO3 ABG O2 Sat (Measured) ABG O2 Content ABG Base Excess Paresh Test VBG pH POC VBG pCO2 POC VBG pO2 Mixed VBG HCO3 O2 Delivery Device Oxygen Flow Rate Vent Mode Vent Rate Mechanical Rate PEEP Pressure Support Vent Sodium 142 Potassium 4.5 Chloride 109 H Carbon Dioxide 19 L Anion Gap 15 BUN 26 H Creatinine 1.9 H Creat Clearance w eGFR 25.44 POC Glucometer Random Glucose 282 H Lactic Acid 9.3 H* Calcium 7.4 L Phosphorus Magnesium Total Bilirubin 0.5 AST 92 H ALT 53 Alkaline Phosphatase 103 Creatine Kinase 59 Creatine Kinase Index CK-MB (CK-2) Troponin I 0.02 Total Protein 5.4 L Albumin 2.7 L Urine Color Urine Appearance Urine pH Ur Specific [place] Urine Protein Urine Glucose (UA) Urine Ketones Urine Blood Urine Nitrite Urine Bilirubin Urine Urobilinogen Ur Leukocyte Esterase Urine WBC (Auto) Urine RBC (Auto) Ur Epithelial Cells Urine Bacteria Urine Mucus 04/01/18 04/01/18 04/01/18 14:30 16:00 18:40 WBC RBC Hgb Hct MCV MCH MCHC RDW Plt Count MPV Absolute Neuts (auto) Neutrophils % Lymphocytes % Monocytes % Eosinophils % Basophils % Nucleated RBC % Hypochromia Platelet Estimate Polychromasia Poikilocytosis Anisocytosis Microcytosis Macrocytosis Ovalocytes Acanthocytes (Spur) Schistocytes Anticoagulation Therapy No Result Required. Puncture Site Left radial ABG pH 7.31 L ABG pCO2 at Pt Temp 44.5 ABG pO2 at Pt Temp 137.0 H ABG HCO3 21.9 L ABG O2 Sat (Measured) 98.5 ABG O2 Content 10.3 L ABG Base Excess -3.5 L Paresh Test Positive VBG pH POC VBG pCO2 POC VBG pO2 Mixed VBG HCO3 O2 Delivery Device Vent Oxygen Flow Rate 100% Vent Mode A/c Vent Rate 14 Mechanical Rate No Result Required. PEEP 5.0 Pressure Support Vent 350 Sodium Potassium Chloride Carbon Dioxide Anion Gap BUN Creatinine Creat Clearance w eGFR POC Glucometer Random Glucose Lactic Acid 2.1 H Calcium Phosphorus Magnesium Total Bilirubin AST ALT Alkaline Phosphatase Creatine Kinase Creatine Kinase Index CK-MB (CK-2) Troponin I 0.17 H Total Protein Albumin Urine Color Urine Appearance Urine pH Ur Specific [place] Urine Protein Urine Glucose (UA) Urine Ketones Urine Blood Urine Nitrite Urine Bilirubin Urine Urobilinogen Ur Leukocyte Esterase Urine WBC (Auto) Urine RBC (Auto) Ur Epithelial Cells Urine Bacteria Urine Mucus 04/01/18 04/01/18 04/02/18 20:10 20:10 01:30 WBC 13.8 H RBC 3.15 L Hgb 7.8 L Hct 24.6 L MCV 78.1 L MCH 24.9 L MCHC 31.8 L RDW 26.1 H Plt Count 294 MPV 7.4 L Absolute Neuts (auto) Neutrophils % Lymphocytes % Monocytes % Eosinophils % Basophils % Nucleated RBC % Hypochromia Platelet Estimate Polychromasia Poikilocytosis Anisocytosis Microcytosis Macrocytosis Ovalocytes Acanthocytes (Spur) Schistocytes Anticoagulation Therapy Puncture Site ABG pH ABG pCO2 at Pt Temp ABG pO2 at Pt Temp ABG HCO3 ABG O2 Sat (Measured) ABG O2 Content ABG Base Excess Paresh Test VBG pH POC VBG pCO2 POC VBG pO2 Mixed VBG HCO3 O2 Delivery Device Oxygen Flow Rate Vent Mode Vent Rate Mechanical Rate PEEP Pressure Support Vent Sodium Potassium Chloride Carbon Dioxide Anion Gap BUN Creatinine Creat Clearance w eGFR POC Glucometer Random Glucose Lactic Acid 1.1 Calcium Phosphorus Magnesium Total Bilirubin AST ALT Alkaline Phosphatase Creatine Kinase 150 Creatine Kinase Index 3.9 CK-MB (CK-2) 5.9 H Troponin I 0.21 H Total Protein Albumin Urine Color Urine Appearance Urine pH Ur Specific [place] Urine Protein Urine Glucose (UA) Urine Ketones Urine Blood Urine Nitrite Urine Bilirubin Urine Urobilinogen Ur Leukocyte Esterase Urine WBC (Auto) Urine RBC (Auto) Ur Epithelial Cells Urine Bacteria Urine Mucus 04/02/18 04/02/18 04/02/18 01:30 01:30 05:30 WBC 15.9 H RBC 3.24 L Hgb 8.1 L Hct 25.5 L MCV 78.7 L MCH 25.0 L MCHC 31.7 L RDW 26.2 H Plt Count 257 MPV 7.8 Absolute Neuts (auto) Neutrophils % Lymphocytes % Monocytes % Eosinophils % Basophils % Nucleated RBC % Hypochromia Platelet Estimate Polychromasia Poikilocytosis Anisocytosis Microcytosis Macrocytosis Ovalocytes Acanthocytes (Spur) Schistocytes Anticoagulation Therapy Puncture Site ABG pH ABG pCO2 at Pt Temp ABG pO2 at Pt Temp ABG HCO3 ABG O2 Sat (Measured) ABG O2 Content ABG Base Excess Paresh Test VBG pH POC VBG pCO2 POC VBG pO2 Mixed VBG HCO3 O2 Delivery Device Oxygen Flow Rate Vent Mode Vent Rate Mechanical Rate PEEP Pressure Support Vent Sodium 141 Potassium 4.2 Chloride 111 H Carbon Dioxide 24 Anion Gap 7 L BUN 31 H Creatinine 1.6 H Creat Clearance w eGFR 31.01 POC Glucometer Random Glucose 160 H Lactic Acid Calcium 7.0 L Phosphorus Magnesium Total Bilirubin 0.7 AST 138 H ALT 113 H Alkaline Phosphatase 147 H Creatine Kinase Creatine Kinase Index CK-MB (CK-2) Troponin I Total Protein 5.4 L Albumin 2.8 L Urine Color Yellow Urine Appearance Cloudy Urine pH 5.0 Ur Specific [place] 1.017 Urine Protein 2+ H Urine Glucose (UA) Negative Urine Ketones Negative Urine Blood 2+ H Urine Nitrite Negative Urine Bilirubin Negative Urine Urobilinogen Negative Ur Leukocyte Esterase 1+ H Urine WBC (Auto) 15 Urine RBC (Auto) 46 Ur Epithelial Cells Few Urine Bacteria Rare Urine Mucus Rare 04/02/18 05:30 WBC RBC Hgb Hct MCV MCH MCHC RDW Plt Count MPV Absolute Neuts (auto) Neutrophils % Lymphocytes % Monocytes % Eosinophils % Basophils % Nucleated RBC % Hypochromia Platelet Estimate Polychromasia Poikilocytosis Anisocytosis Microcytosis Macrocytosis Ovalocytes Acanthocytes (Spur) Schistocytes Anticoagulation Therapy Puncture Site ABG pH ABG pCO2 at Pt Temp ABG pO2 at Pt Temp ABG HCO3 ABG O2 Sat (Measured) ABG O2 Content ABG Base Excess Paresh Test VBG pH POC VBG pCO2 POC VBG pO2 Mixed VBG HCO3 O2 Delivery Device Oxygen Flow Rate Vent Mode Vent Rate Mechanical Rate PEEP Pressure Support Vent Sodium 142 Potassium 4.6 Chloride 112 H Carbon Dioxide 23 Anion Gap 7 L BUN 30 H Creatinine 1.6 H Creat Clearance w eGFR 31.01 POC Glucometer Random Glucose 133 H Lactic Acid Calcium 7.0 L Phosphorus 4.4 Magnesium 2.4 Total Bilirubin 0.6 AST 109 H ALT 105 H Alkaline Phosphatase 141 H Creatine Kinase Creatine Kinase Index CK-MB (CK-2) Troponin I Total Protein 5.6 L Albumin 2.8 L Urine Color Urine Appearance Urine pH Ur Specific [place] Urine Protein Urine Glucose (UA) Urine Ketones Urine Blood Urine Nitrite Urine Bilirubin Urine Urobilinogen Ur Leukocyte Esterase Urine WBC (Auto) Urine RBC (Auto) Ur Epithelial Cells Urine Bacteria Urine Mucus Active Medications Generic Name Dose Route Start Last Admin Trade Name Freq PRN Reason Stop Dose Admin Heparin Sodium (Porcine) 5,000 unit 04/01/18 22:00 04/02/18 06:23 Heparin - SQ 5,000 unit TID ZOHRA Administration Sodium Chloride 1,000 mls @ 75 mls/hr 04/01/18 17:45 04/01/18 17:00 Normal Saline - IV 75 mls/hr ASDIR ZOHRA Administration Fentanyl 500 mcg/ Dextrose 100 mls @ 5 mls/hr 04/01/18 18:00 04/01/18 22:27 IVPB 25 mcg/hr TITR ZOHRA 5 mls/hr Administration Protocol 25 MCG/HR ASSESSMENT/PLAN: Patient is an 82 year old female with history of hypertension, COPD, 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 Neurological -More alert than yesterday -CT head shows atrophy, with ventricular dilation. Preserved cardenas-white matter junction. -currently on fentanyl for sedation and shivering due to TTM. -TTM was discontinued and rewarming processes started. Patient will be rewarmed to 96 F. Due to poor progression of rewarming, she was given DAYA hugger on low settings to give low external application of reheating. -Monitor for any changes in mental status Pulmonary COPD -Intubated. Ventilator settings: RR14, tidal volume 350, PEEP 5, FiO2 50%. -Chest x-ray shows questionable right sided lower lobe infiltrate, concerning for pneumonia. Elevated right hemidiaphragm. -Patient received Vancomycin 1000mg IV, Zosyn 3.375grams IV initially. Currently on zosyn -Maintain oxygen saturation greater than 90% Cardiovascular Asystole, cardiac arrest Bradycardia Hypertension -Patient reported in Asystole at time of EMS arrival (uncertain for how long patient was in asystole). Per EMS, ROSC obtained approx 15 minutes after EMS arrival. -EKG upon admission shows Afib with RVR at 109 BPM with TWI in V2-V6 -troponins decreasing -Reported history of heart failure. -Lactic acid 9.2 likely secondary to coronary ischemia; resolved -On cardiac pacing initially, but patient had an intrinsic sinus rhythm of 60 bpm thus pacing turned off patient was able to maintain. The patient began having BPs in the 240s/220s during the rewarming process. Concerns arised she was having cranial herniation due to bradycardia and HTN. Likely this is machine error due to the shivering she was experiencing. She was initially started on nicardipine 5mg.hr but manual BP showed 88/58, thus was discontinued. after patient achieved 96 F, she was reassessed and found to have within normal limits BP. Gastrointestinal -NPO while patient is intubated -IV normal saline at 75mL/ hour. Chest radiograph not impressive for fluid overload. No crackles, wheezing auscultated on exam. -Monitor closely for signs of fluid overload Renal Acute kidney injury -BUN 30/1.6 Uncertain baseline. No reported history of CKD. -ELIU likely secondary to hypoperfusion during asystole. -Patient is receiving IV fluids -Follow BUN/ Cr -Follow urine output Psychiatric Anxiety -Holding home anxiety medications. Consider reinstating once patient is awake. FEN -Fluids: IV normal saline at 75mL/ hour -Electrolytes: Within normal limits. Follow CMP, replete as necessary. -Nutrition: NPO while intubated. Prophylaxis -Heparin 5000units subq TID Tubes, Lines, Drains -Patient intubated in the field by EMS 04/01 -Right central venous catheter placed in ED 04/01 -Petty catheter placed 04/01 Disposition: Goals of care: Per [facility] paperwork from [facility], patient's son Berhane Dhillon ([phone]) is health care proxy. Discussion initiated regarding goals of care. It was decided to make her DNR. In addition, he wants to have mental status assessed after rewarming to evaluate mental function. If non- intact, states his mother would not want to live like this and would do a compassion extubation planned for Sunday with family. Visit type - Emergency Visit Emergency Visit: Yes ED Registration Date: 04/01/18 Care time: The patient presented to the Emergency Department on the above date and was hospitalized for further evaluation of their emergent condition. - New Patient This patient is new to me today: Yes Date on this admission: 04/02/18 - Critical Care Critical Care patient: Yes Total Critical Care Time (in minutes): 36 Critical Care Statement: The care of this patient involved high complexity decision making to prevent further life threatening deterioration of the patient 's condition and/or to evaluate & treat vital organ system(s) failure or risk of failure. - Discharge Referral Referred to [facility] Med [facility].: No
--- NOTE | 2018-04-02 09:39 | CONS ---
DATE OF CONSULTATION: 04/02/2018 CONSULTATION REQUESTED BY: Devaughn Castillo MD CHIEF COMPLAINT: Cardiovascular evaluation post cardiopulmonary arrest. HISTORY: History was predominantly obtained from medical records. Patient currently is intubated, nonresponsive 82-year-old female with known history of probable coronary artery disease, angina pectoris, diastolic left ventricular dysfunction, hypertensive cardiovascular disease, reflex sympathetic dystrophy secondary to C6-C7 fracture post surgical intervention, organic brain syndrome, vascular dementia, chronic obstructive pulmonary disease, anxiety disorder, who was found after ringing her alarm desai to be unresponsive, pulseless, requiring resuscitation and eventual transfer to [facility]. There was no reported event prior to the above noted presentation. Patient was noted initially to have atrial fibrillation, and subsequently she developed bradycardia requiring external pacemaker initiation. Patient currently is intubated, unresponsive to painful stimuli. Paced rhythm was noted. Underlying rhythm is sinus bradycardia with intermittent sinus tachycardia. No additional history is obtainable. Echocardiography was performed which revealed normal left ventricular systolic function with estimated LVEF between 60% to 65%, right ventricular systolic dysfunction, biatrial dilatation, [id number] tricuspid valve regurgitation, with calculated RVSP of 66 mmHg and a small pericardial effusion. PAST MEDICAL HISTORY: Probable coronary artery disease, angina pectoris, diastolic left ventricular dysfunction, hypertensive cardiovascular disease, organic brain syndrome, vascular dementia, reflex sympathetic dystrophy secondary to C6-C7 fracture post surgical intervention, chronic obstructive pulmonary disease, and in addition, history of anxiety disorder. SOCIAL HISTORY: Resides in extended care facility. FAMILY HISTORY: Unknown. ALLERGIES: QUINOLONES and SULFA. MEDICATIONS: Medical therapy currently includes subcutaneous heparin; IV fluid, normal saline; and fentanyl. REVIEW OF SYSTEMS: Not obtainable. PHYSICAL EXAMINATION: Vital Signs: Blood pressure is 106/61 mmHg. Pulse rate is 64 beats per minute, regular. Head and Neck: Pupils are not reactive to light and accommodation. External ocular muscles cannot be evaluated. Anicteric sclerae. Negative JVD. No bruit appreciated. Chest: Bilateral scattered rhonchi. Cardiovascular: S1, S2 regular, distant. No murmur is appreciated. Abdomen: Soft, benign. Extremities: Negative edema. Diminished pulses. Unable to elicit calf tenderness. STUDIES: Electrocardiogram reveals atrial fibrillation with rapid ventricular response, right bundle branch block, and ST segment and T-wave abnormality. Chest x-ray report was noted. CT scan of the head report was noted. CBC included white cell count 15.9, hemoglobin 8.1, platelet count 257. Blood gas revealed a pH 7.31, PCO2 of 44.5, PO2 of 137, saturation 98.5%. Basic metabolic profile reveals sodium 142, potassium 4.6, BUN of 30, creatinine 1.6, glucose 133. AST 109, ALT 105. CPK and troponin levels were noted. ASSESSMENT: 1. Post cardiopulmonary arrest with probable anoxic encephalopathy. 2. Coronary artery disease with evidence of demand ischemic injury, angina pectoris. 3. Diastolic left ventricular dysfunction with clinical class 0 [employer] classification left ventricular failure. 4. Right ventricular dysfunction with pulmonary hypertension, most likely related to number 3/diastolic left ventricular dysfunction. 5. Chronic obstructive pulmonary disease. 6. Sinus bradycardia, tachycardia and paroxysmal atrial fibrillation with [id number] score of 5 suggestive of sinus node dysfunction. 7. Hypertensive cardiovascular disease. 8. History of reflex sympathetic dystrophy secondary to C6-C7 fracture post fusion. 9. History of organic brain syndrome/vascular dementia. 10. Chronic obstructive pulmonary disease. 11. Chronic kidney disease. 12. Abnormal liver function testing, most likely related to shock liver. 13. History of anxiety disorder. RECOMMENDATIONS: 1. Ideally recommend anticoagulation unless it is absolutely contraindicated, considering the above noted history of paroxysmal atrial fibrillation with [id number] score of 5. 2. External pacing as needed pending assessment of neurological status and if the above noted arrhythmia is persistent, may require permanent pacemaker implantation. 3. Ideally patient should be on beta shreya but to be deferred in view of the above noted bradyarrhythmia. 4. Trend troponin I. 5. Overall poor prognosis. Patient currently is DNR pending further assessment of neurologic status/recovery. Thank you for the kind referral. RORY RUSH M.D. DAVID/[id number]
--- NOTE | 2018-04-02 12:15 | PN ---
Teaching Attending Note Name of Resident: Conor Whiting ATTENDING PHYSICIAN STATEMENT I saw and evaluated the patient. I reviewed the resident's note and discussed the case with the resident. I agree with the resident's findings and plan as documented. SUBJECTIVE: Patient seen and examined in the ICU. Intubated on AC Mode of vent. Minimal response on low dose Fentanyl. No pressors. Made DNR. Intake & Output 03/30/18 03/31/18 04/01/18 04/02/18 23:59 23:59 23:59 23:59 Intake Total 340 1020 Output Total 100 Balance 340 920 Weight 110 lb 154 lb Last Vital Signs Temp Pulse Resp BP Pulse Ox 93.0 F L 59 L 14 117/99 100 04/02/18 10:00 04/02/18 10:00 04/02/18 11:00 04/02/18 10:00 04/02/18 08:00 Active Medications Heparin Sodium (Porcine) (Heparin -) 5,000 unit SQ TID [facility] Last Admin: 04/02/18 06:23 Dose: 5,000 unit Sodium Chloride (Normal Saline -) 1,000 mls @ 75 mls/hr IV ASDIR [facility] Last Admin: 04/01/18 17:00 Dose: 75 mls/hr Fentanyl 500 mcg/ Dextrose 100 mls @ 5 mls/hr IVPB TITR [facility]; Protocol Last Admin: 04/01/18 22:27 Dose: 25 mcg/hr, 5 mls/hr GENERAL: Patient is intubated, minimally responsive, right lateral upward gaze HEENT: pupils minimally responsive EARS, NOSE, THROAT: intubated, dry mucous membranes. LUNGS: Mechanical ventilation, bilateral rhonchi HEART: Irregular rate and rhythm. normal S1 and S2 without murmur, rub or gallop. ABDOMEN: Soft, not distended. Hypoactive bowel sounds x4 quadrants. UPPER EXTREMITIES: 1+ radial pulses bilaterally. No cyanosis. LOWER EXTREMITIES: 1+ dorsalis pedis pulses bilaterally. No peripheral edema bilateral lower extremities. SKIN: Warm, dry. ENVIRONMENTAL HEALTH SAFETY MANAGER: Minimally responsive Laboratory Results - last 24 hr 04/01/18 04/01/18 04/01/18 09:46 14:30 16:00 WBC RBC Hgb Hct MCV MCH MCHC RDW Plt Count MPV Hypochromia 2+ Platelet Estimate Normal Polychromasia 1+ Poikilocytosis 3+ Anisocytosis 1+ Microcytosis 1+ Macrocytosis 1+ Ovalocytes 1+ Acanthocytes (Spur) 1+ Schistocytes 1+ Anticoagulation Therapy Puncture Site ABG pH ABG pCO2 at Pt Temp ABG pO2 at Pt Temp ABG HCO3 ABG O2 Sat (Measured) ABG O2 Content ABG Base Excess Paresh Test O2 Delivery Device Oxygen Flow Rate Vent Mode Vent Rate Mechanical Rate PEEP Pressure Support Vent Sodium Potassium Chloride Carbon Dioxide Anion Gap BUN Creatinine Creat Clearance w eGFR Random Glucose Lactic Acid 2.1 H Calcium Phosphorus Magnesium Total Bilirubin AST ALT Alkaline Phosphatase Creatine Kinase Creatine Kinase Index CK-MB (CK-2) Troponin I 0.17 H Total Protein Albumin Urine Color Urine Appearance Urine pH Ur Specific [place] Urine Protein Urine Glucose (UA) Urine Ketones Urine Blood Urine Nitrite Urine Bilirubin Urine Urobilinogen Ur Leukocyte Esterase Urine WBC (Auto) Urine RBC (Auto) Ur Epithelial Cells Urine Bacteria Urine Mucus 04/01/18 04/01/18 04/01/18 18:40 20:10 20:10 WBC RBC Hgb Hct MCV MCH MCHC RDW Plt Count MPV Hypochromia Platelet Estimate Polychromasia Poikilocytosis Anisocytosis Microcytosis Macrocytosis Ovalocytes Acanthocytes (Spur) Schistocytes Anticoagulation Therapy No Result Required. Puncture Site Left radial ABG pH 7.31 L ABG pCO2 at Pt Temp 44.5 ABG pO2 at Pt Temp 137.0 H ABG HCO3 21.9 L ABG O2 Sat (Measured) 98.5 ABG O2 Content 10.3 L ABG Base Excess -3.5 L Paresh Test Positive O2 Delivery Device Vent Oxygen Flow Rate 100% Vent Mode A/c Vent Rate 14 Mechanical Rate No Result Required. PEEP 5.0 Pressure Support Vent 350 Sodium Potassium Chloride Carbon Dioxide Anion Gap BUN Creatinine Creat Clearance w eGFR Random Glucose Lactic Acid 1.1 Calcium Phosphorus Magnesium Total Bilirubin AST ALT Alkaline Phosphatase Creatine Kinase 150 Creatine Kinase Index 3.9 CK-MB (CK-2) 5.9 H Troponin I 0.21 H Total Protein Albumin Urine Color Urine Appearance Urine pH Ur Specific [place] Urine Protein Urine Glucose (UA) Urine Ketones Urine Blood Urine Nitrite Urine Bilirubin Urine Urobilinogen Ur Leukocyte Esterase Urine WBC (Auto) Urine RBC (Auto) Ur Epithelial Cells Urine Bacteria Urine Mucus 04/02/18 04/02/18 04/02/18 01:30 01:30 01:30 WBC 13.8 H RBC 3.15 L Hgb 7.8 L Hct 24.6 L MCV 78.1 L MCH 24.9 L MCHC 31.8 L RDW 26.1 H Plt Count 294 MPV 7.4 L Hypochromia Platelet Estimate Polychromasia Poikilocytosis Anisocytosis Microcytosis Macrocytosis Ovalocytes Acanthocytes (Spur) Schistocytes Anticoagulation Therapy Puncture Site ABG pH ABG pCO2 at Pt Temp ABG pO2 at Pt Temp ABG HCO3 ABG O2 Sat (Measured) ABG O2 Content ABG Base Excess Paresh Test O2 Delivery Device Oxygen Flow Rate Vent Mode Vent Rate Mechanical Rate PEEP Pressure Support Vent Sodium 141 Potassium 4.2 Chloride 111 H Carbon Dioxide 24 Anion Gap 7 L BUN 31 H Creatinine 1.6 H Creat Clearance w eGFR 31.01 Random Glucose 160 H Lactic Acid Calcium 7.0 L Phosphorus Magnesium Total Bilirubin 0.7 AST 138 H ALT 113 H Alkaline Phosphatase 147 H Creatine Kinase Creatine Kinase Index CK-MB (CK-2) Troponin I Total Protein 5.4 L Albumin 2.8 L Urine Color Yellow Urine Appearance Cloudy Urine pH 5.0 Ur Specific [place] 1.017 Urine Protein 2+ H Urine Glucose (UA) Negative Urine Ketones Negative Urine Blood 2+ H Urine Nitrite Negative Urine Bilirubin Negative Urine Urobilinogen Negative Ur Leukocyte Esterase 1+ H Urine WBC (Auto) 15 Urine RBC (Auto) 46 Ur Epithelial Cells Few Urine Bacteria Rare Urine Mucus Rare 04/02/18 04/02/18 05:30 05:30 WBC 15.9 H RBC 3.24 L Hgb 8.1 L Hct 25.5 L MCV 78.7 L MCH 25.0 L MCHC 31.7 L RDW 26.2 H Plt Count 257 MPV 7.8 Hypochromia Platelet Estimate Polychromasia Poikilocytosis Anisocytosis Microcytosis Macrocytosis Ovalocytes Acanthocytes (Spur) Schistocytes Anticoagulation Therapy Puncture Site ABG pH ABG pCO2 at Pt Temp ABG pO2 at Pt Temp ABG HCO3 ABG O2 Sat (Measured) ABG O2 Content ABG Base Excess Paresh Test O2 Delivery Device Oxygen Flow Rate Vent Mode Vent Rate Mechanical Rate PEEP Pressure Support Vent Sodium 142 Potassium 4.6 Chloride 112 H Carbon Dioxide 23 Anion Gap 7 L BUN 30 H Creatinine 1.6 H Creat Clearance w eGFR 31.01 Random Glucose 133 H Lactic Acid Calcium 7.0 L Phosphorus 4.4 Magnesium 2.4 Total Bilirubin 0.6 AST 109 H ALT 105 H Alkaline Phosphatase 141 H Creatine Kinase Creatine Kinase Index CK-MB (CK-2) Troponin I Total Protein 5.6 L Albumin 2.8 L Urine Color Urine Appearance Urine pH Ur Specific [place] Urine Protein Urine Glucose (UA) Urine Ketones Urine Blood Urine Nitrite Urine Bilirubin Urine Urobilinogen Ur Leukocyte Esterase Urine WBC (Auto) Urine RBC (Auto) Ur Epithelial Cells Urine Bacteria Urine Mucus ASSESSMENT/PLAN: Asystolic Cardiac arrest with probable ESTELA Acute Respiratory Failure R/O PNA Hypertension COPD History of reflex sympathetic dystrophy History of C6/C7 fracture S/P fusion ELIU AFib Passive rewarm Keep off sedation for now to assess mental status, can use propofol/versed if needed Strict I & O Pressors (NE) for MAP < 65 Broad spectrum ABX coverage Follow CXR IVF Overall prognosis for meaningful recovery appears grave Requires ICU monitoring Dr Miller Critical care time spent in reviewing chart, evaluating patient and formulating plan - 36 minutes.
[2018-04-02] MEDS: FENTANYL INJECTION 500 MCG in DEXTROSE 5%-WATER - 90 ML IVPB SCH ×2 (13:40→18:00)
--- NOTE | 2018-04-02 14:21 | CON.ID ---
Consult Consult Specialty:: infectious diseases - Past Medical History Pulmonary: Yes: COPD - Alcohol/Substance Use Hx Alcohol Use: No - Smoking History Smoking history: Never smoked Have you smoked in the past 12 months: No Home Medications - Allergies Allergies/Adverse Reactions: Allergies Allergy/AdvReac Type Severity Reaction Status Date / Time ciprofloxacin [From Cipro] Allergy Verified 04/01/18 09:30 Quinolones Allergy Verified 04/01/18 09:31 Sulfa (Sulfonamide Allergy Verified 04/01/18 09:31 Antibiotics) - Home Medications Home Medications: Ambulatory Orders Albuterol Sulfate [Proair Hfa] 8.5 gm IH PRN #1 [id number] 04/01/18 Amlodipine Besylate [Norvasc -] 10 mg PO DAILY #30 tablet 04/01/18 Atorvastatin Ca [Lipitor] 20 mg PO HS #30 tablet 04/01/18 Docusate Sodium 200 mg PO DAILY 30 Days capsule 04/01/18 Ergocalciferol (Vitamin D2) [Vitamin D2] 50,000 unit PO WEEKLY 30 Days capsule 04/01/18 Fluoxetine HCl [Prozac] 40 mg PO DAILY #30 cap 04/01/18 Metoprolol Tartrate 25 mg PO BID 30 Days tablet 04/01/18 Oxycodone HCl/Acetaminophen [Percocet 10-325 mg Tablet] 1 each PO QID 7 Days tablet MDD 40-1300mg 04/01/18 Quetiapine Fumarate [Seroquel -] 25 mg PO BID #60 tab 04/01/18 traZODone HCL [Trazodone HCl] 100 mg PO DAILY #30 tablet 04/01/18 Physical Exam Vital Signs: Vital Signs Temperature 87.7 F L 04/02/18 12:00 Pulse Rate 60 04/02/18 12:00 Respiratory Rate 17 04/02/18 12:00 Blood Pressure 142/67 04/02/18 12:00 O2 Sat by Pulse Oximetry (%) 100 04/02/18 08:00 Labs: CBC, BMP 04/02/18 05:30 04/02/18 05:30
[2018-04-02] MEDS ORDERED: VANCOMYCIN 1 GRAM (PRE-DOCKED) 1,000 MG/250 ML BAG IVPB ONE (14:22)
[2018-04-02] MEDS ORDERED: PIPERACILLIN/TAZOBACTAM 2.25 GM VIAL IVPB ONE ×2 (14:47→20:38)
[2018-04-02] MEDS ORDERED: DEXTROSE 5%-WATER - 50 ML IVPB ONE ×2 (14:48→20:39)
[2018-04-02] MEDS: PIPERACILLIN/TAZOB 2.25 GM 2.25 GM in DEXTROSE 5%-WATER - 50 ML IVPB SCH ×2 (14:55→17:06)
[2018-04-02] MEDS ORDERED: NICARDIPINE 25 MG in DEXTROSE 5%-WATER - 240 ML IVPB SCH (15:45)
[2018-04-02] MEDS ORDERED: niCARdipine HCL 25 MG/10 ML AMPUL IVPB ONE (15:50)
[2018-04-02] MEDS: SODIUM CHLORIDE 1,000 ML IV SCH (16:44)
--- NOTE | 2018-04-02 16:49 | PN ---
Progress Note, Physician History of Present Illness: intubated on hypothermia protocol - Current Medication List Current Medications: Active Medications Heparin Sodium (Porcine) (Heparin -) 5,000 unit SQ TID [facility] Last Admin: 04/02/18 14:56 Dose: 5,000 unit Sodium Chloride (Normal Saline -) 1,000 mls @ 75 mls/hr IV ASDIR [facility] Last Admin: 04/02/18 16:44 Dose: 75 mls/hr Fentanyl 500 mcg/ Dextrose 100 mls @ 5 mls/hr IVPB TITR [facility]; Protocol Last Admin: 04/02/18 13:40 Dose: 50 mcg/hr, 10 mls/hr Piperacillin Sod/Tazobactam (Sod 2.25 gm/ Dextrose) 50 mls @ 100 mls/hr IVPB Q8H-IV [facility]; Protocol Last Admin: 04/02/18 14:55 Dose: 100 mls/hr Nicardipine HCl 25 mg/ (Dextrose) 250 mls @ 25 mls/hr IVPB TITR [facility]; Protocol Last Titration: 04/02/18 16:10 Dose: 5 mg/hr, 50 mls/hr - Objective Vital Signs: Vital Signs Temperature 94.9 F L 04/02/18 16:00 Pulse Rate 56 L 04/02/18 16:10 Respiratory Rate 23 H 04/02/18 16:00 Blood Pressure 264/235 H 04/02/18 16:10 O2 Sat by Pulse Oximetry (%) 100 04/02/18 08:00 HENT: Yes: Atraumatic Cardiovascular: Yes: Regular Rate and Rhythm Respiratory: Yes: Rhonchi Gastrointestinal: Yes: Normal Bowel Sounds Edema: No Neurological: Yes: Other (intubated with some sedation) Labs: CBC, BMP 04/02/18 05:30 04/02/18 05:30 Problem List - Problems (1) Cardiac arrest Assessment/Plan: intubated hypothermia protocol dnr troponins trending up all consults reviewed Code(s): I46.9 - CARDIAC ARREST, CAUSE UNSPECIFIED (2) Pneumonia Assessment/Plan: iv abx id consult Code(s): J18.9 - PNEUMONIA, UNSPECIFIED ORGANISM Assessment/Plan cc time 35 min
[2018-04-03] MEDS ORDERED: PIPERACILLIN/TAZOBACTAM 2.25 GM VIAL IVPB ONE ×2 (00:52→10:50)
[2018-04-03] MEDS ORDERED: DEXTROSE 5%-WATER - 50 ML IVPB ONE ×2 (00:52→10:50)
[2018-04-03] MEDS: PIPERACILLIN/TAZOB 2.25 GM 2.25 GM in DEXTROSE 5%-WATER - 50 ML IVPB SCH ×2 (01:02→10:52)
[2018-04-03] MEDS: HEPARIN NA (PORCINE) 5,000 UNITS/ML 1ML VIAL SQ SCH ×2 (06:33→14:31)
[2018-04-03 07:00] LABS: HEMATOCRIT 22.6 % (32.4-45.2); HEMOGLOBIN 7.2 GM/dL (10.7-15.3); MCH 24.5 pg (25.7-33.7); MCHC 31.6 g/dl (32.0-36.0); MEAN CELL VOLUME 77.3 fl (80-96); MEAN PLT VOLUME 7.7 fl (7.5-11.1); PLATELET COUNT 311 K/MM3 (134-434); RBC 2.93 M/mm3 (3.60-5.2); RDW 26.7 % (11.6-15.6); WHITE BLOOD COUNT 17.5 K/mm3 (4.0-10.0)
[2018-04-03 07:30] LABS: ALBUMIN 2.7 g/dl (3.4-5.0); ALK PHOS 118 U/L (45-117); ANION GAP 9 MMOL/L (8-16); BILIRUBIN,TOTAL 0.4 mg/dL (0.2-1); BLOOD UREA NITROGEN 32 mg/dL (7-18); CALCIUM 7.1 mg/dL (8.5-10.1); CHLORIDE 111 mmol/L (98-107); CO2 21 mmol/L (21-32); CREATININE 1.8 mg/dL (0.55-1.3); GLUCOSE,RANDOM 107 mg/dL (74-106); POTASSIUM 4.6 mmol/L (3.5-5.1); SGOT/AST 60 U/L (15-37); SGPT/ALT 72 U/L (13-61); SODIUM 141 mmol/L (136-145); TOT PROT 5.4 g/dl (6.4-8.2)
[2018-04-03 09:28] VITALS: TEMP 99.9
--- NOTE | 2018-04-03 10:59 | PN ---
Progress Note, Physician History of Present Illness: Off pressors and sedation, awaiting change in neurologic status, remains unresponsive on vent. - Current Medication List Current Medications: Active Medications Heparin Sodium (Porcine) (Heparin -) 5,000 unit SQ TID [facility] Last Admin: 04/03/18 06:33 Dose: 5,000 unit Sodium Chloride (Normal Saline -) 1,000 mls @ 75 mls/hr IV ASDIR [facility] Last Admin: 04/02/18 16:44 Dose: 75 mls/hr Fentanyl 500 mcg/ Dextrose 100 mls @ 5 mls/hr IVPB TITR [facility]; Protocol Last Admin: 04/02/18 18:00 Dose: Not Given Piperacillin Sod/Tazobactam (Sod 2.25 gm/ Dextrose) 50 mls @ 100 mls/hr IVPB Q8H-IV [facility]; Protocol Last Admin: 04/03/18 01:02 Dose: 100 mls/hr Nicardipine HCl 25 mg/ (Dextrose) 250 mls @ 25 mls/hr IVPB TITR [facility]; Protocol Last Titration: 04/02/18 17:00 Dose: 0 mg/hr, 0 mls/hr - Objective Vital Signs: Vital Signs Temperature 99.9 F H 04/03/18 09:27 Pulse Rate 68 04/03/18 09:27 Respiratory Rate 15 04/03/18 09:27 Blood Pressure 130/60 04/03/18 09:27 O2 Sat by Pulse Oximetry (%) 96 04/03/18 08:38 Constitutional: Yes: No Distress, Calm, Thin Neck: Yes: Supple Cardiovascular: Yes: Regular Rate and Rhythm Respiratory: Yes: Mechanically Ventilated, On Venti-Mask, Rhonchi Gastrointestinal: Yes: Soft, Hypoactive Bowel Sounds Edema: No Labs: CBC, BMP 04/03/18 05:30 04/03/18 05:30 - ....Imaging Chest X-ray: Report Reviewed (Bilateral effusions with compressive ATX) Problem List - Problems (1) Paroxysmal atrial fibrillation Code(s): I48.0 - PAROXYSMAL ATRIAL FIBRILLATION (2) Anoxic brain injury Code(s): G93.1 - ANOXIC BRAIN DAMAGE, NOT ELSEWHERE CLASSIFIED (3) Cardiac arrest Code(s): I46.9 - CARDIAC ARREST, CAUSE UNSPECIFIED (4) Acute kidney injury superimposed on CKD Code(s): N17.9 - ACUTE KIDNEY FAILURE, UNSPECIFIED; N18.9 - CHRONIC KIDNEY DISEASE, UNSPECIFIED (5) Shock liver Code(s): K72.00 - ACUTE AND SUBACUTE HEPATIC FAILURE WITHOUT COMA (6) Pneumonia Code(s): J18.9 - PNEUMONIA, UNSPECIFIED ORGANISM Qualifiers: Pneumonia type: due to unspecified organism Assessment/Plan Echocardiography dated 04/01/18 revealed normal LV size and function, LVEF 60-65% , RV systolic dysfunction, bi-atrial dilatation, moderae to severe TR with RVSP of 66 mmHg, small pericardial effusion 1. Post cardio-pulmonary arrest with probable anoxic encephalopathy 2. Acute Respiratory Failure R/O PNA 2. 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 Diastolic LV dysfunction with clinical class 0 NYHA classification LV failure 4. RV dysfunction with pulmonary HTN, most likely related to #3/diastolic LV dysfunction and #9/COPD 5. Sinus bradycardia- tachycardia and PAF/[id number] score of 5 (suggestive of sinus node dysfunction) 6. HTN 7. History of reflex sympathetic dystrophy secondary to C6/C7 fracture post fusion 8. History of organic brain syndrome/vascular dementia 9. COPD 10. Acute on CKD 11. Abnormal LFT's, shock liver 12. Anemia PLAN: 1. A/C held due to low Hgb, transfuse to maintain Hgb>8.0 2. External pacing as needed pending assessment of neurologic status, and if the above noted arrhythmia is persistent may require PPM 3. Ideally should be on B-Blockers but to be deferred in view of the above noted bradyarrhythmia 4. Troponin downtrending 5. Overall poor prognosis, patient currently is DNR pending further assessment of neurologic status/recovery 6. Keep off sedation for now to assess mental status, can use propofol/versed as needed 7. Empiric abx course, f/u EEG, DVT prophylaxis
--- NOTE | 2018-04-03 13:14 | PN ---
Physical Exam: SUBJECTIVE: Patient seen and examined OBJECTIVE: Vital Signs Period Temp Pulse Resp BP Sys/Garcia Pulse Ox Last 24 Hr 91.8 F-100.2 F 56-70 13-27 88-264/51-235 94-100 GENERAL: The patient is awake, alert, and fully oriented, in no acute distress. HEAD: Normal with no signs of trauma. EYES: PERRL, extraocular movements intact, sclera anicteric, conjunctiva clear. No ptosis. ENT: Ears normal, nares patent, oropharynx clear without exudates, moist mucous membranes. NECK: Trachea midline, full range of motion, supple. LUNGS: Breath sounds equal, clear to auscultation bilaterally, no wheezes, no crackles, no accessory muscle use. HEART: Regular rate and rhythm, S1, S2 without murmur, rub or gallop. ABDOMEN: Soft, nontender, nondistended, normoactive bowel sounds, no guarding, no rebound, no hepatosplenomegaly, no masses. EXTREMITIES: 2+ pulses, warm, well-perfused, no edema. NEUROLOGICAL: Cranial nerves II through XII grossly intact. Normal speech, gait not observed. PSYCH: Normal mood, normal affect. SKIN: Warm, dry, normal turgor, no rashes or lesions noted Laboratory Results - last 24 hr 04/02/18 04/03/18 04/03/18 17:30 05:30 05:30 WBC 17.5 H RBC 2.93 L Hgb 7.2 L Hct 22.6 L MCV 77.3 L MCH 24.5 L MCHC 31.6 L RDW 26.7 H Plt Count 311 D MPV 7.7 Sodium 141 Potassium 4.6 Chloride 111 H Carbon Dioxide 21 Anion Gap 9 BUN 32 H Creatinine 1.8 H Creat Clearance w eGFR 27.07 Random Glucose 107 H Calcium 7.1 L Total Bilirubin 0.4 AST 60 H ALT 72 H Alkaline Phosphatase 118 H Creatine Kinase 712 H Creatine Kinase Index 2.1 CK-MB (CK-2) 15.0 H Troponin I 0.16 H Total Protein 5.4 L Albumin 2.7 L Active Medications Generic Name Dose Route Start Last Admin Trade Name Freq PRN Reason Stop Dose Admin Heparin Sodium (Porcine) 5,000 unit 04/01/18 22:00 04/03/18 06:33 Heparin - SQ 5,000 unit TID [facility] Administration Sodium Chloride 1,000 mls @ 75 mls/hr 04/01/18 17:45 04/02/18 16:44 Normal Saline - IV 75 mls/hr ASDIR [facility] Administration Fentanyl 500 mcg/ Dextrose 100 mls @ 5 mls/hr 04/01/18 18:00 04/02/18 18:00 IVPB Not Given TITR [facility] Protocol 25 MCG/HR Piperacillin Sod/Tazobactam 50 mls @ 100 mls/hr 04/02/18 14:30 04/03/18 10:52 Sod 2.25 gm/ Dextrose IVPB 100 mls/hr Q8H-IV [facility] Administration Protocol Nicardipine HCl 25 mg/ 250 mls @ 25 mls/hr 04/02/18 15:45 04/02/18 17:00 Dextrose IVPB 0 mg/hr TITR [facility] 0 mls/hr Titration Protocol 2.5 MG/HR ASSESSMENT/PLAN:
--- NOTE | 2018-04-03 13:15 | PN ---
Teaching Attending Note Name of Resident: Conor Whiting ATTENDING PHYSICIAN STATEMENT I saw and evaluated the patient. I reviewed the resident's note and discussed the case with the resident. I agree with the resident's findings and plan as documented. SUBJECTIVE: Pt seen and examined in the ICU. Remains intubated, poorly responsive even with sedation off. Vented on volume assist control with 50% FiO2. Family considering compassionate extubation. OBJECTIVE: Vital Signs Period Temp Pulse Resp BP Sys/Garcia Pulse Ox Last 24 Hr 91.8 F-100.2 F 56-70 13-27 88-264/51-235 94-100 Intake & Output 03/31/18 04/01/18 04/02/18 04/03/18 23:59 23:59 23:59 23:59 Intake Total 340 2390 1020 Output Total 350 300 Balance 340 2040 720 Weight 49.895 kg 49.895 kg 49.895 kg Gen: intubated, poorly responsive Heart: RRR Lung: scattered rhonchi Abd: soft, nontender Ext: no edema CBC, BMP 04/03/18 05:30 04/03/18 05:30 Active Medications Heparin Sodium (Porcine) (Heparin -) 5,000 unit SQ TID [facility] Last Admin: 04/03/18 06:33 Dose: 5,000 unit Sodium Chloride (Normal Saline -) 1,000 mls @ 75 mls/hr IV ASDIR [facility] Last Admin: 04/02/18 16:44 Dose: 75 mls/hr Fentanyl 500 mcg/ Dextrose 100 mls @ 5 mls/hr IVPB TITR [facility]; Protocol Last Admin: 04/02/18 18:00 Dose: Not Given Piperacillin Sod/Tazobactam (Sod 2.25 gm/ Dextrose) 50 mls @ 100 mls/hr IVPB Q8H-IV [facility]; Protocol Last Admin: 04/03/18 10:52 Dose: 100 mls/hr Nicardipine HCl 25 mg/ (Dextrose) 250 mls @ 25 mls/hr IVPB TITR [facility]; Protocol Last Titration: 04/02/18 17:00 Dose: 0 mg/hr, 0 mls/hr ASSESSMENT AND PLAN: s/p Cardiopulmonary Arrest Likely Anoxic Encephalopathy Pneumonia Acute Kidney Injury CAD +Troponins likely Demand Ischemia LV Diastolic Dysfunction Pulmonary HTN COPD HTN Anemia - continue antibiotics - minimize sedation to assess mental status - monitor urine output, creatinine - monitor neuro exam - continue discussions with family regarding goals of care, compassionate extubation would be appropriate in this setting - DVT/GI prophylaxis critical care time spent in reviewing chart, evaluating patient and formulating plan 35 min
[2018-04-03] MEDS ORDERED: morphine SULFATE 4 MG/ML VIAL IVPUSH ONE (13:26)
[2018-04-03] MEDS ORDERED: LORazepam 2 MG/ML SDV VIAL IVPUSH SCH (13:30)
[2018-04-03] MEDS ORDERED: MORPHINE 100 MG in SODIUM CHLORIDE 98 ML IVPB SCH (13:30)
[2018-04-03] MEDS ORDERED: LORazepam 2 MG/ML SDV VIAL ONE (13:35)
--- NOTE | 2018-04-03 14:22 | PN ---
Progress Note, Physician History of Present Illness: patient continues to do poorly minimally responsive no mental function - Current Medication List Current Medications: Active Medications Heparin Sodium (Porcine) (Heparin -) 5,000 unit SQ TID [facility] Last Admin: 04/03/18 06:33 Dose: 5,000 unit Sodium Chloride (Normal Saline -) 1,000 mls @ 75 mls/hr IV ASDIR [facility] Last Admin: 04/02/18 16:44 Dose: 75 mls/hr Piperacillin Sod/Tazobactam (Sod 2.25 gm/ Dextrose) 50 mls @ 100 mls/hr IVPB Q8H-IV [facility]; Protocol Last Admin: 04/03/18 10:52 Dose: 100 mls/hr Nicardipine HCl 25 mg/ (Dextrose) 250 mls @ 25 mls/hr IVPB TITR [facility]; Protocol Last Titration: 04/02/18 17:00 Dose: 0 mg/hr, 0 mls/hr Morphine Sulfate 100 mg/ (Sodium Chloride) 100 mls @ 1 mls/hr IVPB TITR [facility]; Protocol Last Admin: 04/03/18 13:45 Dose: 1 mg/hr, 1 mls/hr Lorazepam (Ativan Injection -) 2 mg IVPUSH Q1H [facility] - Objective Vital Signs: Vital Signs Temperature 99.9 F H 04/03/18 09:27 Pulse Rate 66 04/03/18 12:00 Respiratory Rate 15 04/03/18 12:00 Blood Pressure 126/58 L 04/03/18 12:00 O2 Sat by Pulse Oximetry (%) 96 04/03/18 08:38 Constitutional: Yes: Other Cardiovascular: Yes: Regular Rate and Rhythm Respiratory: Yes: Intubated, Mechanically Ventilated, Other (poorly responsivr) Gastrointestinal: Yes: Normal Bowel Sounds, Soft Musculoskeletal: Yes: WNL Extremities: Yes: WNL Neurological: Yes: Other Psychiatric: Yes: Other Labs: CBC, BMP 04/03/18 05:30 04/03/18 05:30 Assessment/Plan ASSESSMENT AND PLAN: s/p Cardiopulmonary Arrest Likely Anoxic Encephalopathy Pneumonia Acute Kidney Injury CAD +Troponins likely Demand Ischemia LV Diastolic Dysfunction Pulmonary HTN COPD HTN Anemia uti gm positive bacteremia plan continue abx family plan awaited minimally responsive rest as per icu if final decisions made then no further work up otherwise repeat blood cx cc 38 min
--- NOTE | 2018-04-03 14:28 | PN ---
Progress Note, Physician History of Present Illness: intubated - Current Medication List Current Medications: Active Medications Heparin Sodium (Porcine) (Heparin -) 5,000 unit SQ TID [facility] Last Admin: 04/03/18 06:33 Dose: 5,000 unit Sodium Chloride (Normal Saline -) 1,000 mls @ 75 mls/hr IV ASDIR [facility] Last Admin: 04/02/18 16:44 Dose: 75 mls/hr Piperacillin Sod/Tazobactam (Sod 2.25 gm/ Dextrose) 50 mls @ 100 mls/hr IVPB Q8H-IV [facility]; Protocol Last Admin: 04/03/18 10:52 Dose: 100 mls/hr Nicardipine HCl 25 mg/ (Dextrose) 250 mls @ 25 mls/hr IVPB TITR [facility]; Protocol Last Titration: 04/02/18 17:00 Dose: 0 mg/hr, 0 mls/hr Morphine Sulfate 100 mg/ (Sodium Chloride) 100 mls @ 1 mls/hr IVPB TITR [facility]; Protocol Last Admin: 04/03/18 13:45 Dose: 1 mg/hr, 1 mls/hr Lorazepam (Ativan Injection -) 2 mg IVPUSH Q1H [facility] - Objective Vital Signs: Vital Signs Temperature 99.9 F H 04/03/18 09:27 Pulse Rate 66 04/03/18 12:00 Respiratory Rate 15 04/03/18 12:00 Blood Pressure 126/58 L 04/03/18 12:00 O2 Sat by Pulse Oximetry (%) 96 04/03/18 08:38 Constitutional: Yes: No Distress HENT: Yes: Atraumatic Neck: Yes: Supple Cardiovascular: Yes: Regular Rate and Rhythm Respiratory: Yes: Rhonchi Gastrointestinal: Yes: Normal Bowel Sounds Edema: No Neurological: Yes: Other (intubated) Labs: CBC, BMP 04/03/18 05:30 04/03/18 05:30 Problem List - Problems (1) Cardiac arrest Assessment/Plan: intubated awaiting family decision Code(s): I46.9 - CARDIAC ARREST, CAUSE UNSPECIFIED (2) Pneumonia Assessment/Plan: iv abx id consult Code(s): J18.9 - PNEUMONIA, UNSPECIFIED ORGANISM Qualifiers: Pneumonia type: due to unspecified organism Assessment/Plan cc time 35 min
[2018-04-03 14:34] VITALS: BP 133/63; PULSE 74
--- NOTE | 2018-04-03 15:25 | HOSP ---
Physical Examination Vital Signs: Vital Signs Temperature 99.9 F H 04/03/18 09:27 Pulse Rate 74 04/03/18 14:00 Respiratory Rate 17 04/03/18 14:00 Blood Pressure 133/63 04/03/18 14:00 O2 Sat by Pulse Oximetry (%) 96 04/03/18 08:38 Labs: CBC, BMP 04/03/18 05:30 04/03/18 05:30 Hospitalist Encounter Assessment: Patient was compassionately extubated per the family's wishes. I was called to see the patient when monitor showed asystole. I assessed the patient in the room. She was unresponsive to voice, touch, and to sternal rub. She did not have carotid and radial pulses bilaterally. There was no air movements or agonal respirations. Her pupils were fixed and dilated. She had no corneal reflex. Upon auscultation of heart, there were no sounds. Patient was declared at 3:19 pm. Patient's family was at bedside. Visit type - Emergency Visit Emergency Visit: Yes ED Registration Date: 04/01/18 Care time: The patient presented to the Emergency Department on the above date and was hospitalized for further evaluation of their emergent condition. - New Patient This patient is new to me today: No - Critical Care Critical Care patient: Yes Total Critical Care Time (in minutes): 36 Critical Care Statement: The care of this patient involved high complexity decision making to prevent further life threatening deterioration of the patient 's condition and/or to evaluate & treat vital organ system(s) failure or risk of failure.
--- NOTE | 2018-04-03 17:49 | DS ---
Physical Examination Vital Signs: Vital Signs Temperature 99.9 F H 04/03/18 09:27 Pulse Rate 74 04/03/18 14:00 Respiratory Rate 17 04/03/18 14:00 Blood Pressure 133/63 04/03/18 14:00 O2 Sat by Pulse Oximetry (%) 96 04/03/18 08:38 Labs: CBC, BMP 04/03/18 05:30 04/03/18 05:30 Discharge Summary Reason For Visit: Cardiac Arrest Current Active Problems Acute kidney injury superimposed on CKD (Acute) Anoxic brain injury (Acute) Cardiac arrest (Acute) Paroxysmal atrial fibrillation (Acute) Pneumonia (Acute) Shock liver (Acute) Condition: Critical - Instructions Referrals: Jose Nelson MD [Primary Care Provider] - Disposition: - Home Medications Comprehensive Discharge Medication List: Ambulatory Orders Albuterol Sulfate [Proair Hfa] 8.5 gm IH PRN #1 [id number] 04/01/18 Amlodipine Besylate [Norvasc -] 10 mg PO DAILY #30 tablet 04/01/18 Atorvastatin Ca [Lipitor] 20 mg PO HS #30 tablet 04/01/18 Docusate Sodium 200 mg PO DAILY 30 Days capsule 04/01/18 Ergocalciferol (Vitamin D2) [Vitamin D2] 50,000 unit PO WEEKLY 30 Days capsule 04/01/18 Fluoxetine HCl [Prozac] 40 mg PO DAILY #30 cap 04/01/18 Metoprolol Tartrate 25 mg PO BID 30 Days tablet 04/01/18 Oxycodone HCl/Acetaminophen [Percocet 10-325 mg Tablet] 1 each PO QID 7 Days tablet MDD 40-1300mg 04/01/18 Quetiapine Fumarate [Seroquel -] 25 mg PO BID #60 tab 04/01/18 traZODone HCL [Trazodone HCl] 100 mg PO DAILY #30 tablet 04/01/18 compassionate extubation certificate filled out online
== END 2018-04-03 21:03 | disposition expired | DRG 208 ==
LOC: JER 09:16 → JERBED 11:01 → JICU 13:23
PROVIDERS: ADMIT Internal Medicine; ATTEND Internal Medicine
PROC: 5A1945Z Respiratory Ventilation, 24-96 Consecutive Hours (ICD-10-PCS; principal; 2018-04-01)
PROC: 05HM33Z Insertion of Infusion Device into Right Internal Jugular Vein, Percutaneous Approach (ICD-10-PCS; 2018-04-01)
PROC: B513ZZA Fluoroscopy of Right Jugular Veins, Guidance (ICD-10-PCS; 2018-04-01)
DX: J96.00 Acute respiratory failure, unspecified whether with hypoxia or hypercapnia (principal); J18.9 Pneumonia, unspecified organism; K72.00 Acute and subacute hepatic failure without coma; G93.1 Anoxic brain damage, not elsewhere classified; I31.3 Pericardial effusion (noninflammatory); N17.9 Acute kidney failure, unspecified; I24.8 Other forms of acute ischemic heart disease; I13.0 Hypertensive heart and chronic kidney disease with heart failure and stage 1 through stage 4 chronic kidney disease, or unspecified chronic kidney disease; I50.30 Unspecified diastolic (congestive) heart failure; J90 Pleural effusion, not elsewhere classified; J96.01 Acute respiratory failure with hypoxia; I46.9 Cardiac arrest, cause unspecified; J44.9 Chronic obstructive pulmonary disease, unspecified; G90.2 Horner's syndrome; F01.50 Vascular dementia, unspecified severity, without behavioral disturbance, psychotic disturbance, mood disturbance, and anxiety; R00.1 Bradycardia, unspecified; I25.10 Atherosclerotic heart disease of native coronary artery without angina pectoris; I48.0 Paroxysmal atrial fibrillation; D64.9 Anemia, unspecified; I27.20 Pulmonary hypertension, unspecified; N18.9 Chronic kidney disease, unspecified; F41.8 Other specified anxiety disorders; K21.9 Gastro-esophageal reflux disease without esophagitis; E78.00 Pure hypercholesterolemia, unspecified; R68.0 Hypothermia, not associated with low environmental temperature
CPT/HCPCS: 36415; 36600; 70450-TC; 71045-TC-FY; 80053; 81003; 81015; 82550; 82553; 82803; 82962; 83605; 83735; 84100; 84484; 85025; 85027; 87040; 87076; 87086; 87186; 93005; 93010; 93306-TC; 94002; 99285-25; J1644; J7030